=== PATIENT | male | born 1950 | race Hispanic/Latino ===

== ENCOUNTER 2017-09-03 16:00 | Inpatient (IN) | payer MEDICARE ==
[~2017-09-03] VITALS: Ht 172.7 cm; Wt 86.5 kg
[~2017-09-03 16:00] MED LIST: ATOR40TA71 PO; DULO30CA51 PO; ESCI10TA54 PO; GABA-531 PO; MELO-108 PO; TRAM50TA4 PO; TRAZ-144 PO
[2017-09-03 16:56] VITALS: BP 146/87
[2017-09-03 17:04] LABS: APPEARANCE,URINE Clear (CLEAR); BILIRUBIN,URINE Negative (NEGATIVE); COLOR,URINE Yellow (YELLOW); GLUCOSE, URINE (UA) Negative (NEGATIVE); KETONES,URINE Negative (NEGATIVE); LEUKOCYTE ESTERASE ,URINE Negative (NEGATIVE); NITRATE,URINE Negative (NEGATIVE); OCCULT BLOOD,URINE Negative (NEGATIVE); PH,URINE >=9.0 (5.0-8.0); PROTEIN,URINE Negative (NEGATIVE)
[2017-09-04] VITALS (21 sets, daily range): BP systolic 90–156; BP diastolic 53–93
[2017-09-04] MEDS ORDERED: LACTATED RINGERS 1000ML 1,000 ML IV ONE (07:41)
[2017-09-04] MEDS ORDERED: TRANEXAMIC ACID 1000MG/10ML IV ONE (07:49)
[2017-09-04] MEDS ORDERED: CEFAZOLIN SODIUM 1 GM VIAL ONE (07:49)
[2017-09-04] MEDS ORDERED: WATER FOR INJECTION,STERILE 20 ML VIAL IJ ONE (08:00)
[2017-09-04] MEDS ORDERED: CELECOXIB 200 MG CAP ONE (08:05)
[2017-09-04] MEDS ORDERED: OXYCODONE HCL 10 MG TAB.SR.12H PO ONE (08:06)
[2017-09-04] MEDS ORDERED: ACETAMINOPHEN EXTRA STRENGTH 500 MG TABLET ONE (08:06)
[2017-09-04] MEDS: CEFAZOLIN SODIUM 1 GM VIAL IVP ONE ×2 (08:06→09:22)
[2017-09-04] MEDS ORDERED: KETOROLAC TROMETHAMINE 15MG/ML ONE (08:07)
[2017-09-04] MEDS ORDERED: METOCLOPRAMIDE 10 MG/2 ML VIAL ONE (08:08)
[2017-09-04] MEDS ORDERED: [UNRECOGNIZED DRUG - OTHER] PO (08:13)
[2017-09-04] MEDS ORDERED: TYL3 PO (08:13)
[2017-09-04] MEDS ORDERED: CEPH500C2 PO (08:13)
[2017-09-04] MEDS ORDERED: BACI3.5O22 EN (08:13)
[2017-09-04] MEDS ORDERED: ESOM20CA31 PO (08:13)
[2017-09-04] MEDS ORDERED: NEOSTIGMINE 5MG/5ML SYR IV ONE (09:01)
[2017-09-04] MEDS ORDERED: ONDANSETRON HCL 4 MG/2 ML VIAL ONE ×2 (09:01→12:07)
[2017-09-04] MEDS ORDERED: GLYCOPYRROLATE 0.2 MG/ML 5 ML VIAL ONE (09:01)
[2017-09-04] MEDS ORDERED: LIDOCAINE PF 2% 5ML ABBOJECT ONE (09:01)
[2017-09-04] MEDS ORDERED: ROPIVACAINE 0.5% 5MG/ML 30ML IJ ONE (09:01)
[2017-09-04] MEDS ORDERED: LIDOCAINE HCL 2% JELLY 5 ML ONE (09:01)
[2017-09-04] MEDS ORDERED: DEXAMETHASONE SOD PHOSPHATE 10MG/ML 1ML VIAL ONE (09:01)
[2017-09-04] MEDS ORDERED: ROCURONIUM BROMIDE 10MG/1ML 5ML VL ONE (09:01)
[2017-09-04] MEDS ORDERED: LIDOCAINE HCL 4% LTA SOL 4 ML VIAL ONE (09:01)
[2017-09-04] MEDS ORDERED: LIDOCAINE HCL MPF 1% 5ML VIAL ONE (09:01)
[2017-09-04] MEDS ORDERED: PHENYLEPHRINE HCL 10 MG/ML 1ML VIAL IV ONE (09:01)
[2017-09-04] MEDS ORDERED: MIDAZOLAM HCL 1 MG/ML 2ML VIAL ONE (09:02)
[2017-09-04] MEDS ORDERED: PROPOFOL 10 MG/ML 20ML VIAL IV ONE (09:02)
[2017-09-04] MEDS ORDERED: FENTANYL CITRATE PF 50 MCG/1 ML 2ML VIAL ONE ×2 (09:03→10:55)
[2017-09-04] MEDS ORDERED: BUPIVACAINE/EPI/PF 0.25% 10ML VIAL IJ ONE (09:47)
[2017-09-04] MEDS ORDERED: CEFAZOLIN SODIUM 1 GM VIAL IRRIG ONE (10:08)
[2017-09-04] MEDS ORDERED: FENTANYL CITRATE PF 50 MCG/1 ML 5ML AMP IV ONE (10:14)
[2017-09-04] MEDS ORDERED: LABETALOL HCL 5 MG/ML 20ML VIAL IV ONE (10:25)
[2017-09-04] MEDS ORDERED: DiphenhydrAMINE HCL 50 MG/ML VIAL IVP PRN (11:45)
[2017-09-04] MEDS ORDERED: FERROUS FUMARATE 324 MG TABLET PO PRN (11:45)
[2017-09-04] MEDS ORDERED: TRAMADOL HCL 50 MG TABLET PO PRN (11:45)
[2017-09-04] MEDS ORDERED: CALCIUM CARBONATE 500 MG TABLET PO PRN (11:45)
[2017-09-04] MEDS ORDERED: POTASSIUM CHLORIDE 10% ELIXIR 20 MEQ/15 ML UDCUP PO PRN (11:45)
[2017-09-04] MEDS ORDERED: KETOROLAC TROMETHAMINE 15MG/ML IV PRN (11:45)
[2017-09-04] MEDS ORDERED: POTASSIUM CHLORIDE 20 MEQ ERTAB PO PRN (11:45)
[2017-09-04] MEDS ORDERED: PROMETHAZINE HCL 25 MG/ML 1ML AMPULE IM PRN (11:45)
[2017-09-04] MEDS ORDERED: LIDOCAINE HCL-MPF 1% 2ML VIAL IVP PRN (11:45)
[2017-09-04] MEDS ORDERED: DIPHENHYDRAMINE HCL 25 MG CAPSULE PO PRN (11:45)
[2017-09-04] MEDS ORDERED: POTASSIUM CHLORIDE 20MEQ/100ML 100 ML IV PRN (11:45)
[2017-09-04] MEDS: ACETAMINOPHEN 325 MG TAB PO SCH ×3 (13:25→22:19)
[2017-09-04] MEDS: SODIUM CHLORIDE 0.9% 1000ML 1,000 ML IV SCH ×2 (13:25→21:54)
[2017-09-04] MEDS: OXYCODONE HCL 5 MG TAB PO PRN ×2 (13:30→22:19)
[2017-09-04] MEDS ORDERED: CEFAZOLIN 2GM / 50 ML 50 ML IV SCH (16:45)
[2017-09-04] MEDS: PSYLLIUM SEED 1 EACH PACKET PO SCH (16:54)
[2017-09-04] MEDS: CEFAZOLIN SODIUM 1 GM VIAL IVP SCH (16:54)
[2017-09-04] MEDS: TRAZODONE HCL 50 MG TAB PO SCH (19:38)
[2017-09-04] MEDS: ASPIRIN 325 MG TABLET PO SCH (19:38)
[2017-09-04] MEDS: BACITRACIN 3.5 GM TUBE OD SCH (19:39)
[2017-09-04] MEDS: CELECOXIB 200 MG CAP PO SCH (19:39)
[2017-09-04] MEDS: CEPHALEXIN 500 MG CAPSULE PO SCH (19:40)
[2017-09-05] VITALS (7 sets, daily range): BP systolic 115–135; BP diastolic 65–82
[2017-09-05] MEDS: CEFAZOLIN SODIUM 1 GM VIAL IVP SCH (00:16)
[2017-09-05] MEDS: ACETAMINOPHEN 325 MG TAB PO SCH ×4 (04:09→23:32)
[2017-09-05 05:26] LABS: HEMATOCRIT 35.4 % (42-54); MEAN CORPUSCULAR HGB CONC 35.3 g/dL (32.0-36.0); MEAN CORPUSCULAR VOLUME 93.5 fL (79-99); PLATELET COUNT (AUTO) 156 K/uL (130-400); RED BLOOD CELL COUNT(AUTO) 3.79 MIL/uL (4.50-6.20); RED CELL DISTRIBUTION WIDTH 13.1 % (11.0-15.5); WHITE BLOOD COUNT (AUTO) 12.6 K/uL (4.8-10.8)
[2017-09-05 05:35] LABS: POTASSIUM 3.9 mmol/L (3.5-5.1)
[2017-09-05] MEDS: SODIUM CHLORIDE 0.9% 1000ML 1,000 ML IV SCH (07:31)
[2017-09-05] MEDS: OXYCODONE HCL 5 MG TAB PO PRN ×3 (07:39→21:41)
[2017-09-05] MEDS: POLYETHYLENE GLYCOL 3350 17 GM POWD.PACK PO SCH (09:12)
[2017-09-05] MEDS: CELECOXIB 200 MG CAP PO SCH ×2 (09:12→19:36)
[2017-09-05] MEDS: TAMSULOSIN HCL 0.4 MG CAP.ER.24H PO SCH (09:12)
[2017-09-05] MEDS: ASPIRIN 325 MG TABLET PO SCH ×2 (09:12→19:36)
[2017-09-05] MEDS: CEPHALEXIN 500 MG CAPSULE PO SCH ×2 (09:12→19:36)
[2017-09-05] MEDS: CITALOPRAM 20 MG TABLET PO SCH (09:13)
[2017-09-05] MEDS: GABAPENTIN 300 MG CAPSULE PO SCH (09:13)
[2017-09-05] MEDS: ATORVASTATIN CALCIUM 40 MG TABLET PO SCH (09:13)
[2017-09-05] MEDS: PANTOPRAZOLE SODIUM 40 MG TABLET.DR PO SCH (09:13)
[2017-09-05] MEDS: TRAMADOL HCL 50 MG TABLET PO SCH (09:14)
[2017-09-05] MEDS: BACITRACIN 3.5 GM TUBE OD SCH ×2 (12:20→19:35)
[2017-09-05] MEDS: PSYLLIUM SEED 1 EACH PACKET PO SCH (12:20)
[2017-09-05] MEDS: TRAZODONE HCL 50 MG TAB PO SCH (19:36)
[2017-09-06] MEDS: ACETAMINOPHEN 325 MG TAB PO SCH ×4 (04:28→18:48)
[2017-09-06 05:02] LABS: HEMATOCRIT 31.4 % (42-54); MEAN CORPUSCULAR HEMOGLOBIN 33.4 pg (27.0-33.0); MEAN CORPUSCULAR HGB CONC 35.6 g/dL (32.0-36.0); MEAN CORPUSCULAR VOLUME 93.9 fL (79-99); PLATELET COUNT (AUTO) 151 K/uL (130-400); RED BLOOD CELL COUNT(AUTO) 3.35 MIL/uL (4.50-6.20); RED CELL DISTRIBUTION WIDTH 13.1 % (11.0-15.5)
[2017-09-06 05:08] VITALS: BP 130/85
[2017-09-06 08:00] VITALS: BP 137/68
[2017-09-06] MEDS: GABAPENTIN 300 MG CAPSULE PO SCH (08:31)
[2017-09-06] MEDS: CEPHALEXIN 500 MG CAPSULE PO SCH (08:31)
[2017-09-06] MEDS: BACITRACIN 3.5 GM TUBE OD SCH (08:31)
[2017-09-06] MEDS: PANTOPRAZOLE SODIUM 40 MG TABLET.DR PO SCH (08:31)
[2017-09-06] MEDS: CELECOXIB 200 MG CAP PO SCH (08:31)
[2017-09-06] MEDS: ATORVASTATIN CALCIUM 40 MG TABLET PO SCH (08:31)
[2017-09-06] MEDS: CITALOPRAM 20 MG TABLET PO SCH (08:31)
[2017-09-06] MEDS: ASPIRIN 325 MG TABLET PO SCH (08:31)
[2017-09-06] MEDS: TRAMADOL HCL 50 MG TABLET PO SCH (08:32)
[2017-09-06] MEDS: OXYCODONE HCL 5 MG TAB PO PRN ×2 (08:32→18:45)
[2017-09-06] MEDS: POLYETHYLENE GLYCOL 3350 17 GM POWD.PACK PO SCH (08:33)
[2017-09-06] MEDS: TAMSULOSIN HCL 0.4 MG CAP.ER.24H PO SCH (08:33)
[2017-09-06] MEDS ORDERED: BISACODYL 5 MG TABLET.DR PO SCH (09:15)
[2017-09-06] MEDS ORDERED: LACTULOSE 20 GM/30 ML UDCUP PO SCH (09:15)
[2017-09-06 11:00] VITALS: BP 131/78
[2017-09-06] MEDS ORDERED: BISACODYL 5 MG TABLET.DR PO PRN (11:45)
[2017-09-06] MEDS: PSYLLIUM SEED 1 EACH PACKET PO SCH (11:48)
[2017-09-06 16:00] VITALS: BP 129/71
[2017-09-06] MEDS ORDERED: ASPI-1012 PO (19:41)
[2017-09-06] MEDS ORDERED: HYDR-309 PO (19:41)
[2017-09-07] MEDS ORDERED: BISACODYL 10 MG SUPP.RECT RC PRN (11:45)
[2017-12-10] MEDS ORDERED: TRAZ-147 PO (16:29)
== END 2017-09-06 20:25 | disposition home health service (06) | DRG 470 ==
LOC: EDSTATUS 16:00 → DAHIP 09-04 07:32 → 4BH 09-04 12:19
PROVIDERS: ADMIT Orthopaedic Surgery; ATTEND Orthopaedic Surgery
PROC: 0SRD0J9 Replacement of Left Knee Joint with Synthetic Substitute, Cemented, Open Approach (ICD-10-PCS; principal; 2017-09-04 09:09)
DX: M17.12 Unilateral primary osteoarthritis, left knee (principal); J43.9 Emphysema, unspecified; E78.5 Hyperlipidemia, unspecified; I10 Essential (primary) hypertension; F32.9 Major depressive disorder, single episode, unspecified; F41.9 Anxiety disorder, unspecified; K21.9 Gastro-esophageal reflux disease without esophagitis; G89.29 Other chronic pain
CPT/HCPCS: 36415; 80048; 81003; 85027; 88305; 88311; A4218; C1713; J0690; J1100; J1885; J2001; J2250; J2370; J2405; J2704; J2710; J2765; J2795; J3010; J3490; J7030; J7120

== ENCOUNTER 2017-12-10 15:30 | Inpatient (IN) | payer MEDICARE ==
[~2017-12-10] VITALS: Ht 174 cm; Wt 87.0 kg
[2017-12-10 15:43] VITALS: BP 147/75
[2017-12-10 15:49] LABS: APPEARANCE,URINE Clear (CLEAR); BILIRUBIN,URINE Negative (NEGATIVE); COLOR,URINE Yellow (YELLOW); GLUCOSE, URINE (UA) Negative (NEGATIVE); KETONES,URINE Trace mg/dL (NEGATIVE); LEUKOCYTE ESTERASE ,URINE Negative (NEGATIVE); NITRATE,URINE Negative (NEGATIVE); OCCULT BLOOD,URINE Negative (NEGATIVE); PH,URINE 5.5 (5.0-8.0); PROTEIN,URINE Negative (NEGATIVE)
[2017-12-10 15:56] LABS: CREATININE 1.1 mg/dL (0.5-1.5); POTASSIUM 4.1 mmol/L (3.5-5.1)
[2017-12-10 15:58] LABS: INR 1.02 (0.85-1.15); PARTIAL THROMBOPLASTIN TIME 25.4 SEC (26.3-35.5); PROTHROMBIN TIME 10.7 SEC (9.6-11.6)
[2017-12-10 16:00] LABS: BASOPHILS % (AUTO) 0.6 % (0.0-5.0); EOSINOPHILS % (AUTO) 0.4 % (0.0-8.0); HEMATOCRIT 45.1 % (42-54); LYMPHOCYTES % (AUTO) 17.9 % (21.0-51.0); MEAN CORPUSCULAR HEMOGLOBIN 31.7 pg (27.0-33.0); MEAN CORPUSCULAR HGB CONC 34.6 g/dL (32.0-36.0); MEAN CORPUSCULAR VOLUME 91.8 fL (79-99); MONOCYTES % (AUTO) 8.3 % (3.0-13.0); NEUTROPHILS % (AUTO) 72.8 % (40.0-77.0); PLATELET COUNT (AUTO) 179 K/uL (130-400); RED BLOOD CELL COUNT(AUTO) 4.91 MIL/uL (4.50-6.20); WHITE BLOOD COUNT (AUTO) 5.6 K/uL (4.8-10.8)
[2017-12-10] MEDS ORDERED: ACET1TAB25 PO (16:27)
[2017-12-10] MEDS ORDERED: MELO-108 PO (16:27)
[2017-12-10] MEDS ORDERED: GABA-531 PO (16:27)
[2017-12-10] MEDS ORDERED: ATOR-2 PO (16:27)
[2017-12-10] MEDS ORDERED: DULO30CA51 PO (16:27)
[2017-12-10] MEDS ORDERED: TRAZ-187 PO (16:29)
[2017-12-11] VITALS (27 sets, daily range): BP systolic 123–181; BP diastolic 61–96
[2017-12-11] MEDS ORDERED: LACTATED RINGERS 1000ML 1,000 ML IV ONE (07:16)
[2017-12-11] MEDS ORDERED: CEFAZOLIN SODIUM 1 GM VIAL IVP ONE (08:00)
[2017-12-11] MEDS ORDERED: LIDOCAINE PF 2% 5ML ABBOJECT ONE (08:28)
[2017-12-11] MEDS ORDERED: PROPOFOL 10 MG/ML 20ML VIAL IV ONE (08:28)
[2017-12-11] MEDS ORDERED: DEXAMETHASONE SOD PHOSPHATE 10MG/ML 1ML VIAL ONE (08:28)
[2017-12-11] MEDS ORDERED: FENTANYL CITRATE PF 50 MCG/1 ML 2ML VIAL ONE ×2 (08:28→09:16)
[2017-12-11] MEDS ORDERED: GLYCOPYRROLATE 0.2 MG/ML 5 ML VIAL ONE (08:28)
[2017-12-11] MEDS ORDERED: ONDANSETRON HCL 4 MG/2 ML VIAL ONE (08:28)
[2017-12-11] MEDS ORDERED: MIDAZOLAM HCL 1 MG/ML 2ML VIAL ONE (08:28)
[2017-12-11] MEDS ORDERED: CEFAZOLIN SODIUM 1 GM VIAL ONE (08:29)
[2017-12-11] MEDS ORDERED: TRANEXAMIC ACID 1000MG/10ML IV ONE (08:29)
[2017-12-11] MEDS ORDERED: EPINEPHRINE 1 MG/ML AMPULE ONE (08:39)
[2017-12-11] MEDS ORDERED: BUPIVACAINE/PF 0.25% 30ML VIAL IJ ONE (08:39)
[2017-12-11] MEDS ORDERED: ROCURONIUM BROMIDE 10MG/1ML 5ML VL ONE ×2 (08:41→09:09)
[2017-12-11] MEDS ORDERED: VERAPAMIL HCL 2.5 MG/ML VIAL ONE (09:32)
[2017-12-11] MEDS ORDERED: TEMAZEPAM 15 MG CAPSULE PO PRN (10:15)
[2017-12-11] MEDS ORDERED: LIDOCAINE HCL-MPF 1% 2ML VIAL IVP PRN (10:15)
[2017-12-11] MEDS ORDERED: POTASSIUM CHLORIDE 20MEQ/100ML 100 ML IV PRN (10:15)
[2017-12-11] MEDS ORDERED: TRAMADOL HCL 50 MG TABLET PO PRN (10:15)
[2017-12-11] MEDS ORDERED: DiphenhydrAMINE HCL 50 MG/ML VIAL IVP PRN (10:15)
[2017-12-11] MEDS ORDERED: FERROUS FUMARATE 324 MG TABLET PO PRN (10:15)
[2017-12-11] MEDS ORDERED: ONDANSETRON HCL 4 MG/2 ML VIAL IVP PRN (10:15)
[2017-12-11] MEDS ORDERED: POTASSIUM CHLORIDE 10% ELIXIR 20 MEQ/15 ML UDCUP PO PRN (10:15)
[2017-12-11] MEDS: ACETAMINOPHEN EXTRA STRENGTH 500 MG TABLET PO SCH ×2 (10:15→18:24)
[2017-12-11] MEDS ORDERED: CALCIUM CARBONATE 500 MG TABLET PO PRN (10:15)
[2017-12-11] MEDS ORDERED: OXYCODONE HCL 5 MG TAB PO PRN (10:15)
[2017-12-11] MEDS ORDERED: MEPERIDINE-PF 25 MG/ML SYG ONE ×2 (11:14→11:28)
[2017-12-11] MEDS ORDERED: LABETALOL HCL 5 MG/ML 20ML VIAL IV ONE (11:23)
[2017-12-11] MEDS: SODIUM CHLORIDE 0.9% 1000ML 1,000 ML IV SCH ×2 (12:13→19:25)
[2017-12-11] MEDS: KETOROLAC TROMETHAMINE 15MG/ML IV PRN (12:18)
[2017-12-11] MEDS: OXYCODONE HCL 5 MG TAB PO PRN ×2 (13:28→20:01)
[2017-12-11] MEDS ORDERED: CEFAZOLIN 2GM / 50 ML 50 ML IV SCH (15:15)
[2017-12-11] MEDS: CEFAZOLIN SODIUM 1 GM VIAL IVP SCH ×2 (15:17→22:29)
[2017-12-11] MEDS: CELECOXIB 200 MG CAP PO SCH (20:00)
[2017-12-11] MEDS: FAMOTIDINE 20MG TAB 20 MG TAB PO SCH (20:00)
[2017-12-11] MEDS: GABAPENTIN 300 MG CAPSULE PO SCH (20:00)
[2017-12-11] MEDS: ASPIRIN 325 MG TABLET PO SCH (20:00)
[2017-12-11] MEDS: DULOXETINE HCL 30 MG CAP PO SCH (20:01)
[2017-12-11] MEDS: ATORVASTATIN CALCIUM 40 MG TABLET PO SCH (20:01)
[2017-12-11] MEDS: TRAZODONE HCL 100 MG TABLET PO SCH (20:01)
[2017-12-11] MEDS ORDERED: PREGABALIN 25 MG CAP PO SCH (21:00)
[2017-12-12] MEDS: OXYCODONE HCL 5 MG TAB PO PRN ×4 (00:48→15:39)
[2017-12-12] MEDS: ACETAMINOPHEN EXTRA STRENGTH 500 MG TABLET PO SCH ×3 (02:40→17:49)
[2017-12-12 03:15] VITALS: BP 156/78
[2017-12-12 05:13] LABS: HEMATOCRIT 35.8 % (42-54); MEAN CORPUSCULAR HEMOGLOBIN 31.8 pg (27.0-33.0); MEAN CORPUSCULAR VOLUME 90.9 fL (79-99); NUCLEATED RED BLOOD CELLS 0.1 % (0.0-0.19); PLATELET COUNT (AUTO) 135 K/uL (130-400); RED BLOOD CELL COUNT(AUTO) 3.94 MIL/uL (4.50-6.20); RED CELL DISTRIBUTION WIDTH 14.7 % (11.0-15.5); WHITE BLOOD COUNT (AUTO) 6.9 K/uL (4.8-10.8)
[2017-12-12 05:15] LABS: CREATININE 0.9 mg/dL (0.5-1.5); POTASSIUM 3.5 mmol/L (3.5-5.1)
[2017-12-12] MEDS: POTASSIUM CHLORIDE 20 MEQ ERTAB PO PRN ×2 (05:33→08:13)
[2017-12-12] MEDS: SODIUM CHLORIDE 0.9% 1000ML 1,000 ML IV SCH (05:48)
[2017-12-12] MEDS: ASPIRIN 325 MG TABLET PO SCH ×2 (08:12→20:19)
[2017-12-12] MEDS: CELECOXIB 200 MG CAP PO SCH ×2 (08:12→20:19)
[2017-12-12] MEDS: DULOXETINE HCL 30 MG CAP PO SCH ×2 (08:12→20:20)
[2017-12-12] MEDS: FAMOTIDINE 20MG TAB 20 MG TAB PO SCH ×2 (08:12→20:20)
[2017-12-12] MEDS: GABAPENTIN 300 MG CAPSULE PO SCH ×2 (08:12→20:19)
[2017-12-12] MEDS: KETOROLAC TROMETHAMINE 15MG/ML IV PRN ×2 (08:16→20:20)
[2017-12-12 08:24] VITALS: BP 139/73
[2017-12-12] MEDS ORDERED: TAMSULOSIN HCL 0.4 MG CAP.ER.24H PO SCH (09:00)
[2017-12-12] MEDS ORDERED: POLYETHYLENE GLYCOL 3350 17 GM POWD.PACK PO SCH (09:00)
[2017-12-12 12:09] VITALS: BP 139/69
[2017-12-12 16:38] VITALS: BP 122/59
[2017-12-12 19:05] VITALS: BP 130/68
[2017-12-12] MEDS: ATORVASTATIN CALCIUM 40 MG TABLET PO SCH (20:20)
[2017-12-12] MEDS: TRAZODONE HCL 100 MG TABLET PO SCH (20:20)
[2017-12-12] MEDS ORDERED: ASPI-1012 PO (21:26)
[2017-12-12] MEDS ORDERED: HYDR-309 PO (21:26)
[2017-12-14] MEDS ORDERED: BISACODYL 10 MG SUPP.RECT RC PRN (10:15)
== END 2017-12-12 22:20 | disposition home health service (06) | DRG 470 ==
LOC: EDSTATUS 15:30 → DAHIP 12-11 06:24 → 4AH 12-11 10:54
PROVIDERS: ADMIT Orthopaedic Surgery; ATTEND Orthopaedic Surgery
PROC: 0SRC0J9 Replacement of Right Knee Joint with Synthetic Substitute, Cemented, Open Approach (ICD-10-PCS; principal; 2017-12-11 09:08)
DX: M17.0 Bilateral primary osteoarthritis of knee (principal); E78.5 Hyperlipidemia, unspecified; I10 Essential (primary) hypertension; F41.9 Anxiety disorder, unspecified; F32.9 Major depressive disorder, single episode, unspecified; Z96.652 Presence of left artificial knee joint; K21.9 Gastro-esophageal reflux disease without esophagitis; G47.30 Sleep apnea, unspecified; G89.29 Other chronic pain; Z83.3 Family history of diabetes mellitus; Z82.49 Family history of ischemic heart disease and other diseases of the circulatory system; M81.0 Age-related osteoporosis without current pathological fracture; Z28.21 Immunization not carried out because of patient refusal
CPT/HCPCS: 36415; 80048; 81003; 85025; 85027; 85610; 85730; 88305; 88311; 97039; A4218; J0171; J0690; J1100; J1885; J2001; J2175; J2250; J2405; J2704; J3010; J3490; J7030; J7120

== ENCOUNTER 2018-09-12 09:55 | Observation (INO) | payer MEDICARE ==
[2018-09-11] MEDS: CEFAZOLIN SODIUM 1 GM VIAL IVP SCH (10:30)
--- NOTE | 2018-09-11 16:25 | NUR ---
MEDICATION REPORTED THAT PATIENT TOOK ALEVE AND IBUPROFEN 800 MG THIS MORNING TO DR SHERMAN/DESHAWN ORTIZ TO PROCEED WITH SURGERY.
--- NOTE | 2018-09-11 16:25 | NUR ---
[facility] ELECT[employer] NEWS GATHERING [place] PERSON ADRIAN#[id number] USED FOR VIETNAMESE TRANSLATION
[2018-09-11 16:39] VITALS: BP 147/87
[~2018-09-12] VITALS: Ht 172.7 cm; Wt 88.3 kg
[2018-09-12] VITALS (17 sets, daily range): BP systolic 119–132; BP diastolic 51–75
[~2018-09-12 09:55] MED LIST changes: +DIFL5DRO OS; -DULO30CA51 PO; +DULO60CA63 PO; -ESCI10TA54 PO; +IBUP-2077 PO; -MELO-108 PO; +MULT1TAB70 PO; +NAPR220T57 PO; +OMEP40CA37 PO; -TRAZ-144 PO; +TRAZ-187 PO
[2018-09-12] MEDS ORDERED: LACTATED RINGERS 1000ML 1,000 ML IV ONE (10:46)
--- NOTE | 2018-09-12 10:54 | NUR ---
PUPIL OCCURRENCE: IOL IMPLANT LEFT EYE
[2018-09-12] MEDS ORDERED: MIDAZOLAM HCL 1 MG/ML 2ML VIAL ONE (16:46)
[2018-09-12] MEDS ORDERED: PROPOFOL 10 MG/ML 20ML VIAL IV ONE (16:47)
[2018-09-12] MEDS ORDERED: FENTANYL CITRATE PF 50 MCG/1 ML 2ML VIAL ONE (16:48)
[2018-09-12] MEDS ORDERED: SUCCINYLCHOLINE 200MG/10ML SYR ONE (16:49)
[2018-09-12] MEDS ORDERED: ROCURONIUM 10MG/1ML SYR 10 MG/ML ML ONE (16:50)
[2018-09-12] MEDS: CEFAZOLIN SODIUM 1 GM VIAL IVP SCH ×2 (16:54→20:45)
[2018-09-12] MEDS ORDERED: EPHEDRINE SULFATE 50 MG/ML AMPULE ONE (17:06)
[2018-09-12] MEDS ORDERED: GLYCOPYRROLATE 1 MG/5 ML SYRINGE ONE (18:36)
[2018-09-12] MEDS ORDERED: NEOSTIGMINE 5MG/5ML SYR IV ONE (18:36)
[2018-09-12] MEDS ORDERED: CEFAZOLIN SODIUM 1 GM VIAL ONE (18:57)
[2018-09-12] MEDS ORDERED: FENTANYL CITRATE PF 50 MCG/1 ML 5ML AMP IV ONE (19:34)
[2018-09-12] MEDS ORDERED: TYL3 PO (20:34)
[2018-09-12] MEDS ORDERED: CEPH500B PO (20:34)
[2018-09-12] MEDS ORDERED: PROMETHAZINE HCL 25 MG/ML 1ML AMPULE IM PRN (20:45)
[2018-09-12] MEDS ORDERED: HYDROCODONE/ACETAMINOPHEN 5/325 MG TAB PO PRN (20:45)
[2018-09-12] MEDS ORDERED: MEPERIDINE-PF 25 MG/ML SYG ONE ×2 (20:47→21:02)
[2018-09-12] MEDS ORDERED: MORPHINE SULFATE 4 MG/1ML SYG ONE (21:20)
--- NOTE | 2018-09-12 22:02 | NUR ---
POST OP NOTE RECEIVED PATIENT FROM PACU VIA BED, PATIENT AWAKE, ALERT, OX3, NO SOB,N O C/O PAIN AT THIS TIME, DRESSING LEFT HAND D/I, RIGHT KNEE WITH ESSENCE WRAP D/I, TEACH PATIENT PLAN OF CARE AND EXPECTED OUTCOME
[2018-09-12] MEDS: HYDROCODONE/ACETAMINOPHEN 5/325 MG TAB PO PRN (22:49)
[2018-09-12] MEDS: SODIUM CHLORIDE 0.9% 1000ML 1,000 ML IV SCH (22:50)
[2018-09-13] MEDS: HYDROCODONE/ACETAMINOPHEN 5/325 MG TAB PO PRN (03:14)
[2018-09-13 04:00] VITALS: BP 141/69
[2018-09-13] MEDS: SODIUM CHLORIDE 0.9% 1000ML 1,000 ML IV SCH (04:04)
[2018-09-13] MEDS ORDERED: CEFAZOLIN SODIUM 1 GM VIAL IVP ONE (07:00)
[2018-09-13 08:00] VITALS: BP 139/66
--- NOTE | 2018-09-13 08:00 | NUR ---
NOTE AAOX3. C/O MODERATE PAIN TO LEFT HAND. S/P LEFT SECOND FINGER ORIF AND RIGHT KNEE SCOPE. DRESSING TO BOTH SITES D/I. ESSENCE WRAP TO RIGHT KNEE. GOOD PULSES DISTAL RIGHT LEG AND GOOD CAPILLARY REFILL. LEFT FINGERS ALSO GOOD CAPILLARY REFILL. HAS SENSATION AND MOVEMENT TO LEFT FINGERS AND RIGHT TOES. NO N/V. HAS BEEN VOIDING WITHOUT DIFFICULTY. NO DISTRESS OR SOB. HAS RECEIVED LAST DOSE ANCEF EARLIER THIS AM. HE WILL BE LEAVING LATER THIS AM. WILL MEDICATE FOR PAIN AND REASSESS THEN SEND HIM HOME. HE HAS RX FOR PAIN MEDS WELL.
--- NOTE | 2018-09-13 08:50 | NUR ---
NOTE DISCHARGE INSTRUCTIONS GIVEN AT THIS TIME. VERBALIZED UNDERSTANDING. REFER TO DC SUMMARY FOR DETAILS. PAIN MORE CONTROLLED NOW STILL A 3 BUT HE HAS SCRIPT FOR TYLENOL 3. IS AT HIS SIDE AND WE WENT OVER ALL INSTRUCTIONS FOR INCISION CARE, DRESSING CARE AND FOLLOW UP AND HOME MEDS.
== END 2018-09-13 09:35 | disposition home or self-care (01) ==
LOC: DAH 09:55 → 4CH 20:34
PROVIDERS: ADMIT Orthopaedic Surgery; ATTEND Orthopaedic Surgery
DX: S62.611A Displaced fracture of proximal phalanx of left index finger, initial encounter for closed fracture (principal); M22.2X1 Patellofemoral disorders, right knee; W19.XXXA Unspecified fall, initial encounter; Y93.89 Activity, other specified; Y92.89 Other specified places as the place of occurrence of the external cause; Y99.8 Other external cause status; Z79.899 Other long term (current) drug therapy; I10 Essential (primary) hypertension; K21.9 Gastro-esophageal reflux disease without esophagitis; G47.30 Sleep apnea, unspecified; G89.29 Other chronic pain; E78.5 Hyperlipidemia, unspecified; Z96.659 Presence of unspecified artificial knee joint; Z83.3 Family history of diabetes mellitus
CPT/HCPCS: 26735; 29875; 76000; 96374; A4218; A4606; A4649 ×4; A4930 ×3; A6223; A6445; A6446; C1713 ×5; C1776; G0378 ×13; J0330; J0690 ×3; J2175 ×2; J2250; J2270; J2704; J2710; J3010 ×2; J3490 ×2; J7120 ×2

== ENCOUNTER → 2019-09-04 | Outpatient (CLI) | payer MEDICARE ==
[~2019-09-04] MED LIST changes: -DULO60CA63 PO; +DULO60CA64 PO; -IBUP-2077 PO; +OMEP40CA13 PO; -OMEP40CA37 PO; -TRAM50TA4 PO; +TYL3 PO
== END | disposition home or self-care (01) ==
LOC: RAH 08:54
PROVIDERS: ATTEND Internal Medicine Gastroenterology
DX: K76.0 Fatty (change of) liver, not elsewhere classified (principal); K80.20 Calculus of gallbladder without cholecystitis without obstruction
CPT/HCPCS: 76700

== ENCOUNTER → 2019-12-21 | Outpatient (CLI) | payer MEDICARE ==
[~2019-12-21] MED LIST changes: +IOHEXOL 350 MG/ML 100ML INFUS..BTL IV ONE; +MULT-660 PO; -MULT1TAB70 PO
== END | disposition home or self-care (01) ==
LOC: RAH 08:44
PROVIDERS: ATTEND Internal Medicine Gastroenterology
DX: K80.20 Calculus of gallbladder without cholecystitis without obstruction (principal); K76.0 Fatty (change of) liver, not elsewhere classified; J98.11 Atelectasis
CPT/HCPCS: 74160; Q9967

== ENCOUNTER → 2020-01-13 | Outpatient (CLI) | payer MEDICARE ==
[~2020-01-13] MED LIST changes: -IOHEXOL 350 MG/ML 100ML INFUS..BTL IV ONE
== END | disposition home or self-care (01) ==
LOC: RAH 10:04
PROVIDERS: ATTEND Internal Medicine Gastroenterology
DX: K31.84 Gastroparesis (principal)
CPT/HCPCS: 78264; A9541

== ENCOUNTER → 2022-08-22 | Outpatient (CLI) | payer OTHER ==
[~2022-08-22] MED LIST changes: -OMEP40CA13 PO; +OMEP40CA21 PO
== END | disposition home or self-care (01) ==
LOC: RAH 09:57
PROVIDERS: ATTEND Internal Medicine Gastroenterology
DX: R10.13 Epigastric pain (principal)
CPT/HCPCS: 74240

== ENCOUNTER → 2024-04-09 | Outpatient (CLI) | payer OTHER ==
[~2024-04-09] MED LIST changes: -ATOR40TA71 PO; +BISACODYL PO; +CELE-125 PO; +DICY20TA3 PO; -DIFL5DRO OS; +EMPA25TA PO; -GABA-531 PO; +LOSA50TA64 PO; +METO10TA3 PO; -MULT-660 PO; -NAPR220T57 PO; +ROSU10TA72 PO; +TAMS-1 PO; -TRAZ-187 PO; -TYL3 PO
== END | disposition home or self-care (01) ==
LOC: RAH 10:38
PROVIDERS: ATTEND Surgery
DX: K30 Functional dyspepsia (principal); K21.00 Gastro-esophageal reflux disease with esophagitis, without bleeding; K31.84 Gastroparesis; K44.9 Diaphragmatic hernia without obstruction or gangrene
CPT/HCPCS: 78264; A9541

== ENCOUNTER 2024-06-05 05:47 | Inpatient (IN) | payer OTHER ==
[~2024-06-05] VITALS: Ht 172.7 cm; Wt 67.8 kg
[~2024-06-05 05:47] MED LIST changes: -CELE-125 PO; -DICY20TA3 PO; +GABA300C PO; -METO10TA3 PO; +MULT-1259 PO; -OMEP40CA21 PO
[2024-06-05] MEDS: LACTATED RINGERS 1000ML 1,000 ML IV ONE (06:28)
[2024-06-05] MEDS: morPHINE 2 MG SYG IVP ONE (06:28)
[2024-06-05] MEDS: ondanSETRON 4MG INJ IVP ONE (06:28)
[2024-06-05 06:29] LABS: BASOPHILS # (AUTO) 0.04 K/uL (0.00-0.20); BASOPHILS % (AUTO) 0.3 % (0.0-5.0); EOSINOPHILS # (AUTO) 0.02 K/uL (0.00-0.70); EOSINOPHILS % (AUTO) 0.2 % (0.0-8.0); HEMATOCRIT 54.4 % (42-54); IMMATURE GRANULOCYTE ABSOLUTE 0.06 K/uL (0-1); LYMPHOCYTES # (AUTO) 0.5 K/uL (1.0-4.8); LYMPHOCYTES % (AUTO) 4.2 % (21.0-51.0); MEAN CORPUSCULAR HEMOGLOBIN 33.1 pg (27.0-33.0); MEAN CORPUSCULAR HGB CONC 35.1 g/dL (32.0-36.0); MEAN CORPUSCULAR VOLUME 94.3 fL (79-99); MONOCYTES # (AUTO) 0.7 K/uL (0.1-1.0); MONOCYTES % (AUTO) 5.5 % (3.0-13.0); NEUTROPHILS # (AUTO) 11.3 K/uL (1.8-7.7); NEUTROPHILS % (AUTO) 89.3 % (40.0-77.0); PLATELET COUNT (AUTO) 243 K/uL (130-400); RED BLOOD CELL COUNT(AUTO) 5.77 MIL/uL (4.50-6.20); RED CELL DISTRIBUTION WIDTH 12.4 % (11.0-15.5); WHITE BLOOD COUNT (AUTO) 12.6 K/uL (4.8-10.8)
--- NOTE | 2024-06-05 06:42 | ERN ---
General Chief Complaint: Abdominal Pain Stated Complaint: C/O ABD PAIN WITH N X V, WEAKNESS Time Seen by MD: 06:09 History of Present Illness Initial Comments Mr. Jauregui that is a very pleasant 74-year-old male significant past medical history of BPH, hyperlipidemia, essential hypertension who presents today with acute abdominal pain. Patient reports that he had a robotic cholecystectomy and hiatal hernia repair last week on the 05/29. In addition to that he had a robotic gastric jejunostomy done as well. Patient reports he was doing well and even saw his surgeon yesterday but as soon as leaving his off his patient is started feeling nauseated and having abdominal pain. Patient reports having worsening epigastric pain. Patient has had poor p.o. intake . he is now compl aining of increased weakness Allergies: Coded Allergies: No Known Drug Allergies (Unverified Allergy, Unknown, 11/19/16) Home Meds Reported Medications Gabapentin (Neurontin) 300 Mg Capsule, 300 MG PO AM, CAP 05/25/24 Multivits,Ca,Min/Iron/FA/Lycop (Centrum Men's Tablet) 8 Mg Iron-200 Mcg-600 Mcg Tablet, 1 TAB PO DAILY for 30 Days, #30 TAB 0 Refills 05/25/24 Empagliflozin (Jardiance) 25 Mg Tablet, 25 MG PO AM, TAB 03/25/24 Losartan Potassium (Losartan Potassium) 50 Mg Tablet, 50 MG PO AM, TAB 03/25/24 Rosuvastatin Calcium (Rosuvastatin Calcium) 10 Mg Tablet, 10 MG PO QODAY, TAB 03/25/24 [Bisacodyl] No Conflict Check, 10 MG PO HS 03/25/24 Tamsulosin HCl (Flomax) 0.4 Mg Cap.er.24h, 0.4 MG PO HS, CAPSULE. 03/25/24 Duloxetine HCl (Duloxetine HCl) 60 Mg Capsule.dr, 60 MG PO HS, CAP 09/11/18 Discontinued Reported Medications Esomeprazole Magnesium (Esomeprazole Magnesium) 40 Mg Capsule.dr, 1 CAP PO DAILY for 30 Days, #30 CAP 0 Refills 05/25/24 Dicyclomine HCl (Dicyclomine HCl) 20 Mg Tablet, 20 MG PO BID PRN for PAIN, TAB 03/25/24 Metoclopramide HCl (Metoclopramide HCl) 10 Mg Tablet, 10 MG PO BID, TAB 03/25/24 Celecoxib (Celecoxib) 200 Mg Capsule, 200 MG PO AM, CAP 03/25/24 Past Medical History Past Medical History: Diabetes-Type II, High Cholesterol, Hypertension Past Surgical History: Cholecystectomy, Other Surgical History Other: HERNIA REPAIR ROS Dictation Constitutional: Positive for generalized weakness Eyes: Negative for injury, pain,redness, and discharge ENT: Negative for injury,pain or swelling Cardiovascular: Negative for chest pain, palpitations, and edema Respiratory: Negative for shortness of breath, cough, and wheezing, Abdomen/GI: Positive abdominal pain, nausea vomiting Back: Negative for injury and pain : Negative for injury, bleeding and discharge MS/Extremity: Negative for injury and deformity Skin: Negative for rash, and discoloration Physical Exam Physical Exam Dictation General: awake, alert, NAD Head/Face: Normocephalic, atraumatic Eyes: PERRL, EOMI, ENT: oral cavity clear, Neck: Trachea midline, supple, Cardiovascular: RRR, normal S1/S2, No MRGs, no JVD Respiratory: CTAB, no respiratory distress, No rales or wheezes Abdomen: Pain with palpation in the epigastric region, various surgical incision sites that appear to be clean dry and intact Skin: Warm, dry, normal turgor, no rash MS/Extremity: Pulses equal, no cyanosis, neurovascular intact, FROM Neuro: COAx4, GCS 15, strength 5/5, CN 2-12 intact, normal cerebellar exam, normal gait, Psych: Normal behavior, mood, and affect normal Results Laboratory and Microbiology Lab and Micro Result Laboratory Tests Test 06/05/24 06:23 06/05/24 07:40 White Blood Count 12.6 K/uL (4.8-10.8) H Red Blood Count 5.77 MIL/uL (4.50-6.20) Hemoglobin 19.1 g/dL (14.0-18.0) H Hematocrit 54.4 % (42-54) H Mean Corpuscular Volume 94.3 fL (79-99) Mean Corpuscular Hemoglobin 33.1 pg (27.0-33.0) H Mean Corpuscular Hemoglobin Concent 35.1 g/dL (32.0-36.0) Red Cell Distribution Width 12.4 % (11.0-15.5) Platelet Count 243 K/uL (130-400) Mean Platelet Volume 10.2 fL (7.5-10.5) Immature Granulocyte % (Auto) 0.5 % (0-1) Neutrophils (%) (Auto) 89.3 % (40.0-77.0) H Lymphocytes (%) (Auto) 4.2 % (21.0-51.0) L Monocytes (%) (Auto) 5.5 % (3.0-13.0) Eosinophils (%) (Auto) 0.2 % (0.0-8.0) Basophils (%) (Auto) 0.3 % (0.0-5.0) Neutrophils # (Auto) 11.3 K/uL (1.8-7.7) H Lymphocytes # (Auto) 0.5 K/uL (1.0-4.8) L Monocytes # (Auto) 0.7 K/uL (0.1-1.0) Eosinophils # (Auto) 0.02 K/uL (0.00-0.70) Basophils # (Auto) 0.04 K/uL (0.00-0.20) Absolute Immature Granulocyte (auto 0.06 K/uL (0-1) Segmented Neutrophils % 92 % (40-70) H Band Neutrophils % 2 % (0-2) Lymphocytes % (Manual) 1 % (22-44) L Monocytes % (Manual) 2 % (2-9) Nucleated Red Blood Cells 0.0 % (0.0-0.19) Differential Comment MANUAL DIFFERENTIAL Reactive Lymphocytes 3 % (0-0) H White Cell Morphology Comment Platelet Morphology Comment ADEQUATE Red Blood Cell Morphology NORMAL Sodium Level 142 mmol/L (136-145) Potassium Level 4.4 mmol/L (3.5-5.1) Chloride Level 93 mmol/L (101-111) L Carbon Dioxide Level 26 mmol/L (21-32) Blood Urea Nitrogen 28 mg/dL (7-18) H Creatinine 1.4 mg/dL (0.5-1.3) H Glomerular Filtration Rate Calc 53 mL/min (>90) Random Glucose 180 mg/dL (70-105) H Total Calcium 10.9 mg/dL (8.5-10.1) H Total Bilirubin 0.8 mg/dL (0.2-1.0) Aspartate Amino Transf (AST/SGOT) 19 U/L (10-37) Alanine Aminotransferase (ALT/SGPT) 30 U/L (12-78) Alkaline Phosphatase 129 U/L (50-136) Total Protein 8.6 g/dL (6.0-8.3) H Albumin 5.0 g/dL (3.5-5.0) Amylase Level 79 U/L (25-115) Lipase 41 U/L (16-77) Urine Color YELLOW (YELLOW) Urine Appearance CLEAR (CLEAR) Urine pH 5.0 (5.0-8.0) Urine Specific [place] 1.030 (1.001-1.031) Urine Protein 20 mg/dL (NEGATIVE) H Urine Glucose (UA) >=1000 mg/dL (NEGATIVE) H Urine Ketones 60 mg/dL (NEGATIVE) H Urine Occult Blood NEGATIVE (NEGATIVE) Urine Nitrate NEGATIVE (NEGATIVE) Urine Bilirubin NEGATIVE mg/dL (NEGATIVE) Urine Urobilinogen 0.2 mg/dL (0.2-1.0) Urine Leukocyte Esterase NEGATIVE Amadou/uL Urine RBC 2-5 /HPF (0-1) H Urine WBC 0-1 /HPF (0-1) Urine Squamous Epithelial Cells RARE /HPF (0-2) Urine Bacteria RARE /HPF (None Seen) Urine Hyaline Casts 2-5 /LPF (0-1 /LPF) H Labs Reviewed?: Yes EKG/XRAY/US/CT/[place] [address] IMAGING REPORT Signed PATIENT: KINGSTON FINLEY MR#: [id number] : 1950 SEX: M AGE: 74 LOCATION: [facility] ORDER 1 STATUS: REG ER REPORT#: [id number] SERVICE 1 REASON: abd pain ORDERING PHYSICIAN: RYAN DELEON MD PROCEDURE: ABD PEL W - CT ABDOMEN/PELVIS W/CONTRAST CT ABDOMEN/PELVIS W/CONTRAST HISTORY: Abdominal pain COMPARISON: 12/21/2019 TECHNIQUE: Multiple sequential axial images of the abdomen and pelvis were obtained from the dome of the diaphragm through symphysis pubis. Patient was given 100 cc of Omnipaque through intravenous route. Oral contrast was not given. FINDINGS: No pleural effusion is seen bilaterally. There is no evidence of parenchymal disease or pulmonary nodule of the visualized lower lungs. Degenerative changes of the thoracolumbar spine are present. The heart is not enlarged. Liver measures 13 cm. Gastric distention with small bowel dilatation is seen with transitional point at the level of jejunum consistent with bowel obstruction. The liver, spleen, adrenal glands and pancreas are unremarkable. There is no evidence of hydronephrosis bilaterally. No evidence of renal stone is seen. Fecal material is seen in the colon. There are normal size retroperitoneal and mesenteric lymph nodes. No ascites is seen. Atherosclerotic changes are present. No CT evidence of acute appendicitis is seen. There is diverticulosis. Pelvic sidewalls are symmetric bilaterally. Bladder is well distended without wall thickening. IMPRESSION: 1. Gastric distention with small bowel dilatation is seen with transitional point at the level of jejunum consistent with bowel obstruction. CT was performed with one or more following dose reduction techniques: automated exposure control, adjustment of the mA and kv according to patient's size, or use of a iterative reconstruction technique. DICTATED BY: MIRANDA JACQUES MD DATE: 06/05/24941 ELECTRONICALLY SIGNED BY: MIRANDA JACQUES MD DATE: 06/05/24945 [facility] MDM: Differential diagnosis: Small-bowel obstruction, status post cholecystectomy Rationale: Tests considered and ordered secondary to shared decision making include: labs, ECG and radiology Previous outside records reviewed: Old ER visits. Risk of complication and/or morbidity or mortality of patient management: None Medications-Per medication reconciliation Need for hospitalization: Patient does meet criteria for hospitalization. Need for emergency major/minor surgery: No There are no social concerns with this patient. Prescription drug management Prescriptions will include symptomatic care Patient's prior external medical records from other ER visits were reviewed by me as indicated. Prior testing and results from previous visits were reviewed. Prior tests were taken into account with medical decision making and resource utilization, independent historian/historians were used to obtain complete medical history. I independently interpreted the test that were performed, results were reviewed by me and considered findings on radiology if ordered. Medical management and examination interpretation discussions were had by me with other qualified healthcare professionals as indicated for the patient's care. Patient is a 74-year-old male coming in to be evaluated for abdominal pain. Laboratory workup elevated white blood cell count, CT disclose a small bowel obstruction. Patient will be admitted under the care of Dr. Salmeron for ongoing management. ED Course Orders Procedure Category Date Status Time Cbc With Differential LAB 06/05/24 Complete 06:09 Comprehensive LAB 06/05/24 Complete Metabolic Panel 06:09 Amylase LAB 06/05/24 Complete 06:09 Urinalysis Profile LAB 06/05/24 Complete 06:09 Lactated Ringers PHA 06/05/24 Complete 1000ml (Lactated 06:30 Morphine 2mg Syg PHA 06/05/24 Complete (Morphine 2mg Syg) 06:30 Lipase LAB 06/05/24 Complete 06:09 Ondansetron 4mg Inj PHA 06/05/24 Complete (Zofran 4mg Inj) 06:30 Cefepime Hcl 1 Gm PHA 06/05/24 In Process Vial (Maxipime 1 Gm Vi 06:30 Vancomycin 1g/250ml PHA 06/05/24 Complete Kit (Vancomycin 1g/2 06:30 Manual Differential LAB 06/05/24 Complete 06:23 Pantoprazole 40mg Inj PHA 06/05/24 Complete (Protonix 40mg Inj 09:00 Ct Abdomen/Pelvis CT 06/05/24 Resulted W/Contrast 08:32 Iohexol (Omnipaque) PHA 06/05/24 Complete 09:05 Current Medications Medications (Trade) Dose Ordered Sig/Bridgette Route PRN Reason Start Time Stop Time Status Last Admin Dose Admin Cefepime HCl (MAXipime 1 GM vial) 1 gm Q8H IVPB 06/05/24 06:30 06/15/24 06:29 06/05/24 08:00 Iohexol (Omnipaque) 35,000 mg STK-MED ONCE IV 06/05/24 09:05 06/05/24 09:06 DC Lactated Ringer's 1,000 ml @ 0 mls/hr ONCE ONCE IV 06/05/24 06:30 06/05/24 06:31 DC 06/05/24 06:28 Morphine Sulfate (morPHINE 2MG SYG) 2 mg ONCE ONCE IVP 06/05/24 06:30 06/05/24 06:31 DC 06/05/24 06:28 Ondansetron HCl (zoFRAN 4MG INJ) 4 mg ONCE ONCE IVP 06/05/24 06:30 06/05/24 06:31 DC 06/05/24 06:28 Pantoprazole Sodium (PROTonix 40MG INJ) 40 mg ONCE ONCE IVP 06/05/24 09:00 06/05/24 09:01 DC 06/05/24 09:41 Vancomycin HCl (Vancomycin 1g/ 250ml Kit) 1 gm ONCE ONCE IV 06/05/24 06:30 06/05/24 06:31 DC 06/05/24 09:42 Vital Signs Date Time Temp Pulse Resp B/P (MAP) Pulse Ox O2 Delivery O2 Flow Rate FiO2 06/05/24 06:40 97.7 87 27 130/98 96 Room Air* 0 21 06/05/24 05:49 99.3 105 20 133/79 96 Room Air Critical Care Note Comments Critical Care Procedure Note Authorized and Performed by: me Total critical care time: Approximately 36 minutes Due to a high probability of clinically significant, life threatening deterioration, the patient required my highest level of preparedness to i ntervene emergently and I personally spent this critical care time directly and personally managing the patient. This critical care time included obtaining a history; examining the patient; pulse oximetry; ordering and review of studies; arranging urgent treatment with development of a management plan; evaluation of patient's response to treatment; frequent reassessment; and, discussions with other providers. This critical care time was performed to assess and manage the high probability of imminent, life-threatening deterioration that could result in multi-organ failure. It was exclusive of separately billable procedures and treating other patients and teaching time. Please see MDM section and the rest of the note for further information on patient assessment and treatment. DX & DISP Disposition: Inpatient Decision to Admit Time: 09:59 Departure Impression: Primary Impression: SBO (small bowel obstruction) Condition: Stable Referrals: NADJA LEONARD MD (PCP) KINGSTON ABDULLAHI MD Jun 05, 2024 06:42 RYAN DELEON MD Jun 05, 2024 10:01
[2024-06-05 06:47] LABS: BILIRUBIN,TOTAL 0.8 mg/dL (0.2-1.0); CREATININE 1.4 mg/dL (0.5-1.3); POTASSIUM 4.4 mmol/L (3.5-5.1); TOTAL PROTEIN, SERUM 8.6 g/dL (6.0-8.3)
[2024-06-05 07:24] LABS: BAND NEUTROPHILS % (MANUAL) 2 % (0-2); LYMPHOCYTES % (MANUAL) 1 % (22-44); MAN.DIFF COMMENT-IMPRESSION MANUAL DIFFERENTIAL; MONOCYTES % (MANUAL) 2 % (2-9); PLATELET MORPHOLOGY COMMENT ADEQUATE; REACTIVE LYMPHOCYTES 3 % (0-0); SEGMENTED NEUTROPHILS % 92 % (40-70); TOTAL CELLS COUNTED 100
[2024-06-05] MEDS: ceFEPime HCL 1 GM VIAL IVPB SCH (08:00)
[2024-06-05 08:28] LABS: APPEARANCE,URINE CLEAR (CLEAR); BILIRUBIN,URINE NEGATIVE (NEGATIVE); COLOR,URINE YELLOW (YELLOW); GLUCOSE, URINE (UA) >=1000 mg/dL (NEGATIVE); KETONES,URINE 60 mg/dL (NEGATIVE); LEUKOCYTE ESTERASE ,URINE NEGATIVE Leu/uL (NEGATIVE); NITRATE,URINE NEGATIVE (NEGATIVE); OCCULT BLOOD,URINE NEGATIVE (NEGATIVE); PROTEIN,URINE 20 mg/dL (NEGATIVE); UROBILINOGEN,URINE 0.2 mg/dL (0.2-1.0)
[2024-06-05 08:32] LABS: ADD UA MICROSCOPIC YES
[2024-06-05 08:33] LABS: BACTERIA,URINE RARE /HPF (None Seen); MUCUS,URINE RARE LPF (None Seen); SQUAMOUS EPITHELIAL CELL,UR RARE /HPF (0-2); WBC,URINE 0-1 /HPF (0-1)
[2024-06-05] MEDS ORDERED: IOHEXOL 350 MG/ML 100ML INFUS..BTL IV ONE (09:05)
[2024-06-05] MEDS: PANTOPrazole 40 MG/VIAL IVP ONE (09:41)
[2024-06-05] MEDS: VANCOMYCIN KIT 1 GM/250 ML IV.KIT IV ONE (09:42)
--- NOTE | 2024-06-05 09:46 | HMCIMG ---
CT ABDOMEN/PELVIS W/CONTRAST HISTORY: Abdominal pain COMPARISON: 12/21/2019 TECHNIQUE: Multiple sequential axial images of the abdomen and pelvis were obtained from the dome of the diaphragm through symphysis pubis. Patient was given 100 cc of Omnipaque through intravenous route. Oral contrast was not given. FINDINGS: No pleural effusion is seen bilaterally. There is no evidence of parenchymal disease or pulmonary nodule of the visualized lower lungs. Degenerative changes of the thoracolumbar spine are present. The heart is not enlarged. Liver measures 13 cm. Gastric distention with small bowel dilatation is seen with transitional point at the level of jejunum consistent with bowel obstruction. The liver, spleen, adrenal glands and pancreas are unremarkable. There is no evidence of hydronephrosis bilaterally. No evidence of renal stone is seen. Fecal material is seen in the colon. There are normal size retroperitoneal and mesenteric lymph nodes. No ascites is seen. Atherosclerotic changes are present. No CT evidence of acute appendicitis is seen. There is diverticulosis. Pelvic sidewalls are symmetric bilaterally. Bladder is well distended without wall thickening. IMPRESSION: 1. Gastric distention with small bowel dilatation is seen with transitional point at the level of jejunum consistent with bowel obstruction. CT was performed with one or more following dose reduction techniques: automated exposure control, adjustment of the mA and kv according to patient's size, or use of a iterative reconstruction technique.
[2024-06-05] MEDS ORDERED: acetaMINOPHEN 650 MG SUPPOSITORY RC PRN (10:00)
[2024-06-05] MEDS: INSULIN LISpro 100 UNIT/ML 3ML SQ SCH (11:30)
--- NOTE | 2024-06-05 11:39 | HMCIMG ---
ABD 1VW HISTORY: NG tube placement COMPARISON: None FINDINGS: A frontal projection of the abdomen was obtained. A nonspecific bowel gas pattern is seen. Fecal material is seen in the colon. Bladder is moderately distended with contrast material. IMPRESSION: 1. A nonspecific bowel gas pattern is seen.
[2024-06-05] MEDS: DEXTROSE 5 % AND 0.9 % NACL 1,000 ML IV SCH (11:45)
--- NOTE | 2024-06-05 14:55 | NUR ---
DR. MELARA IN TO SEE PT AND HAS ADVISED US TO CONTACT DR. VEGA CAUSE HE DID SURGURY ON HIM LAST WEEK, AND DR. RICHMOND HARRISON AT BEDSIDE AGREED.
--- NOTE | 2024-06-05 15:01 | NUR ---
ATTEMPT TO CALL REPORTS X1
[2024-06-05 15:30] VITALS: BP 110/72; PULSE 59; RESP 18; TEMP 98.2
[2024-06-05 19:00] VITALS: BP 114/60; PULSE 84; RESP 18; TEMP 97.6
[2024-06-05 20:00] VITALS: O2SAT 97
--- NOTE | 2024-06-05 22:01 | NUR ---
DR.MARTINEZ MORE AWARE OF PATIENT BEING ADMITTED AND UPDATED DOCTOR ON PATIENT STATUS. NO NEW ORDERS AT THIS TIME AND DOCTOR'S TEAM WILL ROUND IN AM. PATIENT AND FAMILY AT BEDSIDE AWARE. Addendum: 06/05/24 at 2205 by IRVING FINK RN RN Amended: Links added.
[2024-06-05 23:00] VITALS: BP 141/76; PULSE 87; RESP 19; TEMP 97.7
[2024-06-06] VITALS (8 sets, daily range): BP systolic 116–140; BP diastolic 57–79; PULSE 69–83; RESP 18–19; TEMP 98–98.8; O2SAT 96–97
--- NOTE | 2024-06-06 00:44 | HP ---
DATE OF SERVICE: 06/05/2024 HISTORY AND PHYSICAL PRESENTING COMPLAINT: Nausea, vomiting, and abdominal pain. HISTORY OF PRESENT ILLNESS: A 74-year-old male with history of diabetes mellitus, hypertension, hiatal hernia, and dyslipidemia, who presented to the hospital with 1 day history of nausea, vomiting and abdominal pain. The patient claims he threw up more than 10 times yesterday. No fever or chills. Abdominal pain localized to the lower quadrant and periumbilical area. The patient recently had laparoscopic cholecystectomy and repair of hiatal hernia. The patient had CT of the abdomen done in the Emergency Room shows small bowel obstruction. NG tube was inserted, with about 1.5 liters of fluid drained. PAST MEDICAL HISTORY: * Diabetes mellitus. * Hypertension. * Dyslipidemia. * Hiatal hernia. * Osteoarthritis. * BPH. PAST SURGICAL HISTORY: * Total knee arthroplasty. * Hiatal hernia repair. * Cholecystectomy. ALLERGIES: No known drug allergy. HOME MEDICATIONS: Reviewed. SOCIAL HISTORY: Lives with . No alcohol, tobacco or illicit drug use. FAMILY HISTORY: Positive for diabetes mellitus. REVIEW OF SYSTEMS: CONSTITUTIONAL: No fever or chills. No weight loss or night sweats. EYES: No eye pain, no photophobia or diplopia. HENT: No sore throat, no rhinorrhea or earache. NECK: No neck pain or neck swelling. RESPIRATORY: Denied cough, hemoptysis or pleuritic pain. CARDIOVASCULAR: No chest pain, no palpitation or orthopnea. GASTROINTESTINAL: Positive for nausea, vomiting, and abdominal pain, no diarrhea. GENITOURINARY: No dysuria, urgency or urinary frequency. CENTRAL NERVOUS SYSTEM: No headache, dyspnea, or slurred speech. PSYCHIATRY: No depression. No suicidal ideation. MUSCULOSKELETAL: No joint pain or joint swelling. PHYSICAL EXAMINATION: GENERAL: An elderly male, awake. VITAL SIGNS: Temperature 98.1, pulse 90, respiratory rate 21, and BP 133/79. EYES: No icterus. Pupils equal and reactive. HENT: No oral thrush seen. Moist oral mucosa. NECK: Supple, no JVD or thyromegaly. LUNGS: Good air entry. No rales, no rhonchi. CARDIOVASCULAR: S1, S2 regular. No murmur heard. ABDOMEN: Full, soft. Bowel sounds present. CENTRAL NERVOUS SYSTEM: Awake, alert, and oriented x 3. No focal deficits. SKIN: No rashes, no itchiness. LYMPHATIC: No peripheral lymphadenopathy. BACK: No deformity, no pressure ulcer. HEMATOLOGIC: No bleeding or petechial lesion seen. MUSCULOSKELETAL: No joint swelling, erythema or tenderness. LABORATORY DATA: Sodium 142, potassium 4.4, BUN 20, and creatinine 1.4. WBC 12.0, hemoglobin 19.1, and platelets 243. RADIOLOGY: CT of the abdomen shows small bowel obstruction. ASSESSMENT: A 74-year-old male presenting with nausea, vomiting, and abdominal pain. CURRENT PROBLEMS: Include: * Small bowel obstruction. * Abdominal pain. * Dehydration. * Acute renal failure. * Diabetes mellitus. * Hypertension. PLAN: * The patient admitted to medical floor. * The patient made n.p.o. * NG tube to low intermittent suction. * Lovenox for DVT prophylaxis. * The patient will be placed on IV fluid. * Morphine as needed for pain. * Zofran as needed for nausea and vomiting. * Monitor electrolytes. * Avoid nephrotoxic medication. TID: [id number] RECEIPT: [id number]
[2024-06-06 04:56] LABS: BASOPHILS # (AUTO) 0.03 K/uL (0.00-0.20); BASOPHILS % (AUTO) 0.3 % (0.0-5.0); EOSINOPHILS # (AUTO) 0.04 K/uL (0.00-0.70); EOSINOPHILS % (AUTO) 0.5 % (0.0-8.0); HEMATOCRIT 49.1 % (42-54); IMMATURE GRANULOCYTE ABSOLUTE 0.04 K/uL (0-1); LYMPHOCYTES # (AUTO) 0.7 K/uL (1.0-4.8); LYMPHOCYTES % (AUTO) 8.3 % (21.0-51.0); MEAN CORPUSCULAR HEMOGLOBIN 33.1 pg (27.0-33.0); MEAN CORPUSCULAR HGB CONC 34.6 g/dL (32.0-36.0); MEAN CORPUSCULAR VOLUME 95.7 fL (79-99); MONOCYTES # (AUTO) 1.3 K/uL (0.1-1.0); MONOCYTES % (AUTO) 14.8 % (3.0-13.0); NEUTROPHILS # (AUTO) 6.6 K/uL (1.8-7.7); NEUTROPHILS % (AUTO) 75.6 % (40.0-77.0); PLATELET COUNT (AUTO) 234 K/uL (130-400); RED BLOOD CELL COUNT(AUTO) 5.13 MIL/uL (4.50-6.20); RED CELL DISTRIBUTION WIDTH 12.7 % (11.0-15.5); WHITE BLOOD COUNT (AUTO) 8.8 K/uL (4.8-10.8)
[2024-06-06 05:15] LABS: BILIRUBIN,TOTAL 0.8 mg/dL (0.2-1.0); CREATININE 1.4 mg/dL (0.5-1.3); MAGNESIUM 2.5 mg/dL (1.80-2.40); POTASSIUM 4.8 mmol/L (3.5-5.1); TOTAL PROTEIN, SERUM 7.8 g/dL (6.0-8.3)
[2024-06-06] MEDS: morPHINE 2 MG SYG IVP PRN (05:27)
[2024-06-06] MEDS: ENOXAPARIN SODIUM 30 MG/0.3 ML SQ SCH (08:04)
[2024-06-06] MEDS ORDERED: BISA-151 PO (09:25)
[2024-06-06] MEDS ORDERED: FAMO40TA7 PO (09:25)
[2024-06-06] MEDS ORDERED: TRAM-543 PO (09:25)
--- NOTE | 2024-06-06 11:25 | CONS ---
GENERAL SURGERY CONSULTATION NOTE Date/Time Patient Seen: [06/06/24 at 10:45am ] Requesting Physician: [ ] Reason for Consultation: [abdominal pain, distension in setting of 1wk post-op ] History of Present Illness: [ The patient is a pleasant 74 yo M s/p robotic HHR with gastrojejunostomy for gastroparesis and cholecystectomy done 05/29/24.The patient was evaluated in clinic 06/04/24 and was doing well, instructed to advance diet to purees and reports later that evening he began developing nausea, distension and abdominal pain. The patient was evaluated at the ER and was admitted due to a possible small bowel obstruction. NG tube placed on LIS with bilious output. Currently NPO. Overnight patient reports one small bowel movement. On exam patient is afebrile, with a non-distended abdomen with regular bowel sounds. No tenderness to palpation. Denies any pain. ] Past Medical History: [ gastroparesis diaphragmatic hernia] Past Surgical History: [05/29/24 - HHR with loop gastrojejunostomy and cholecystectomy ] Family History: [ ] Social History: [ ] Habits: [Never] smoker. [Denies] alcohol consumption. [Denies] illicit drug use Current Medications Medications (Trade) Dose Ordered Sig/Bridgette Route Start Time Stop Time Status Last Admin Dose Admin Cefepime HCl (MAXipime 1 GM vial) 1 gm Q8H IVPB 06/05/24 06:30 06/15/24 06:29 06/06/24 05:30 1 GM Dextrose/Sodium Chloride 1,000 ml @ 75 mls/hr [id number] IV 06/05/24 10:00 07/05/24 09:59 06/05/24 11:45 75 MLS/HR Enoxaparin Sodium (Lovenox) 30 mg DAILY SQ 06/06/24 09:00 07/06/24 08:59 06/06/24 08:04 30 MG Insulin Human Lispro (HumaLOG LISpro 100 UNIT/ML 3ML) INSULIN SLIDING SCAL... ACHS SQ 06/05/24 11:30 07/05/24 11:29 Review of Systems: CONST: [No fever, fatigue, or weight changes.] EYES: [No recent vision problems.] ENT: [No congestion, ear pain, or sore throat.] C/V: [No chest pain, palpitations, or edema.] RESP: [No cough, congestion, wheezing or shortness of breath.] GI: [No abdominal pain, nausea, vomiting, constipation, or diarrhea.] : [No incontinence or dysuria.] SKIN: [No rash.] NEURO: [No headache, focal numbness or weakness, dizziness, or seizures.] PSYCH: [No depression or anxiety.] HEME: [No abnormal bruising or bleeding.] LYMPH: [No swollen glands.] Physical Examination: GENERAL: [No acute distress.] HEAD: [Normal with no signs of head trauma.] EYES: [PERRLA, EOMI, conjunctiva and sclera normal.] ENT: [Hearing grossly intact, normal oropharynx.] NECK: [Supple without JVD. There is no tenderness, lymphadenopathy, or masses. No thyromegaly. Normal carotid upstrokes without bruits.] LUNGS: [Clear breath sounds bilaterally. There are right basilar rales one third of the way up the chest. No wheezes, or rhonchi.] HEART: [Normal rate and rhythm. Normal S1 and S2 without mumurs, gallop or rub.] VASC: [Peripheral pulses +2 bilaterally.] ABD: [Bowel sounds normal, soft, nontender, no masses, no organomegaly. No audible bruits.] : [Not examined] LYMPH: [No lymphadenopathy noted.] EXT: [No clubbing, cyanosis or edema.] SKIN: [No rashes or lesions noted.] NEURO: [Awake, alert, and oriented x3. No focal sensory or strength deficits noted.] Vital Signs (last 8hr) Date Time Temp Pulse Resp B/P (MAP) Pulse Ox O2 Delivery O2 Flow Rate FiO2 06/06/24 08:00 98.8 83 18 132/71 97 Room Air 21 06/06/24 04:00 98.1 75 19 116/57 95 Room Air Laboratory: [ ] Hematology Labs: Test 06/06/24 04:33 06/05/24 06:23 Range/Units White Blood Count 8.8 # 4.8-10.8 K/uL Red Blood Count 5.13 4.50-6.20 MIL/uL Hemoglobin 17.0 14.0-18.0 g/dL Hematocrit 49.1 42-54 % Mean Corpuscular Volume 95.7 79-99 fL Mean Corpuscular Hemoglobin 33.1 H 27.0-33.0 pg Mean Corpuscular Hemoglobin Concent 34.6 32.0-36.0 g/dL Red Cell Distribution Width 12.7 11.0-15.5 % Platelet Count 234 130-400 K/uL Mean Platelet Volume 10.1 7.5-10.5 fL Immature Granulocyte % (Auto) 0.5 0-1 % Neutrophils (%) (Auto) 75.6 40.0-77.0 % Lymphocytes (%) (Auto) 8.3 L 21.0-51.0 % Monocytes (%) (Auto) 14.8 H 3.0-13.0 % Eosinophils (%) (Auto) 0.5 0.0-8.0 % Basophils (%) (Auto) 0.3 0.0-5.0 % Neutrophils # (Auto) 6.6 1.8-7.7 K/uL Lymphocytes # (Auto) 0.7 L 1.0-4.8 K/uL Monocytes # (Auto) 1.3 H 0.1-1.0 K/uL Eosinophils # (Auto) 0.04 0.00-0.70 K/uL Basophils # (Auto) 0.03 0.00-0.20 K/uL Absolute Immature Granulocyte (auto 0.04 0-1 K/uL Nucleated Red Blood Cells 0.0 0.0-0.19 % Segmented Neutrophils % 92 H 40-70 % Band Neutrophils % 2 0-2 % Lymphocytes % (Manual) 1 L 22-44 % Monocytes % (Manual) 2 2-9 % Differential Comment MANUAL DIFFERENTIAL Reactive Lymphocytes 3 H 0-0 % White Cell Morphology Comment Platelet Morphology Comment ADEQUATE Red Blood Cell Morphology NORMAL Chemistry Labs: Test 06/06/24 05:36 06/06/24 04:33 06/05/24 06:23 Range/Units Whole Blood Glucose 164 H 70-110 MG/DL Sodium Level 140 136-145 mmol/L Potassium Level 4.8 3.5-5.1 mmol/L Chloride Level 99 L 101-111 mmol/L Carbon Dioxide Level 32 21-32 mmol/L Blood Urea Nitrogen 36 H 7-18 mg/dL Creatinine 1.4 H 0.5-1.3 mg/dL Glomerular Filtration Rate Calc 53 >90 mL/min Random Glucose 148 H 70-105 mg/dL Total Calcium 9.8 8.5-10.1 mg/dL Magnesium Level 2.50 H 1.80-2.40 mg/dL Total Bilirubin 0.8 0.2-1.0 mg/dL Aspartate Amino Transf (AST/SGOT) 12 10-37 U/L Alanine Aminotransferase (ALT/SGPT) 21 # 12-78 U/L Alkaline Phosphatase 98 50-136 U/L Total Protein 7.8 6.0-8.3 g/dL Albumin 4.0 3.5-5.0 g/dL Amylase Level 79 25-115 U/L Lipase 41 16-77 U/L Diagnostics / Radiology: [[facility] [address] [place] [address] IMAGING REPORT Signed PATIENT: KINGSTON FINLEY MR#: [id number] : 1950 SEX: M AGE: 74 LOCATION: [facility] ORDER 1 STATUS: REG REPORT#: [id number] SERVICE 08 REASON: abd pain ORDERING PHYSICIAN: RYAN DELEON MD PROCEDURE: ABD PEL W - CT ABDOMEN/PELVIS W/CONTRAST CT ABDOMEN/PELVIS W/CONTRAST HISTORY: Abdominal pain COMPARISON: 12/21/2019 TECHNIQUE: Multiple sequential axial images of the abdomen and pelvis were obtained from the dome of the diaphragm through symphysis pubis. Patient was given 100 cc of Omnipaque through intravenous route. Oral contrast was not given. FINDINGS: No pleural effusion is seen bilaterally. There is no evidence of parenchymal disease or pulmonary nodule of the visualized lower lungs. Degenerative changes of the thoracolumbar spine are present. The heart is not enlarged. Liver measures 13 cm. Gastric distention with small bowel dilatation is seen with transitional point at the level of jejunum consistent with bowel obstruction. The liver, spleen, adrenal glands and pancreas are unremarkable. There is no evidence of hydronephrosis bilaterally. No evidence of renal stone is seen. Fecal material is seen in the colon. There are normal size retroperitoneal and mesenteric lymph nodes. No ascites is seen. Atherosclerotic changes are present. No CT evidence of acute appendicitis is seen. There is diverticulosis. Pelvic sidewalls are symmetric bilaterally. Bladder is well distended without wall thickening. IMPRESSION: 1. Gastric distention with small bowel dilatation is seen with transitional point at the level of jejunum consistent with bowel obstruction. CT was performed with one or more following dose reduction techniques: automated exposure control, adjustment of the mA and kv according to patient's size, or use of a iterative reconstruction technique. DICTATED BY: MIRANDA JACQUES MD DATE: 06/05/24941 ELECTRONICALLY SIGNED BY: MIRANDA JACQUES MD DATE: 06/05/24945 ] Assessment: [Patient with a non-distended abdomen. reg bowel sounds. Reports one bowel movement this am. NG tube in place on LIS with decreasing output. Patient denies any pain at the moment. No indications for surgery. ] Plan: [Supportive care. Conservative management. Continue NGT on LIS until output is minimal. May attempt a trial of clamping the tube once patient is asymptomatic and with minimal output If no nausea or distension symptoms, patient may begin ice chips / clear liquids upright. Please call with any change in clinical status ] AYE HADDAD Jun 06, 2024 11:25
--- NOTE | 2024-06-06 17:00 | NUR ---
MET W PATIENT FOR DC [PLANNING READMISSION AFTER ABDOMINAL SURGERY WITH ILEUS/SBO, SEEN W NGT TO LIS. DENIES PAIN AT THIS TIME , EX SPOUSE AT BEDSIDE. CONFIRMS LIVES W SON, KINGSTON ESTRADA WHO WILL PROVIDE TRANSPORT ON DISCHARGE. STATES PREVIOUSLY INDEPENDENT, DDRIVES, NO DME, NO PROVIDER, NO SERVICES, DC PLAN [facility] UNLESS OTHER NEEDS COME UP, CM CAN BE RECONSULTED IF NEEDED
--- NOTE | 2024-06-06 22:51 | PN ---
INFECTIOUS DISEASE FOLLOWUP NOTE DATE OF SERVICE: 06/06/2024 SUBJECTIVE: The patient is seen and examined at bedside today. The patient has no fever, no chills. No nausea, no vomiting. No bleeding tendency. Denied depression. No suicidal ideation. No slurred speech or limb weakness. No dysuria or hematuria. NG tube is in place. PHYSICAL EXAMINATION: VITAL SIGNS: Temperature 97.2. EYES: No icterus. Pupils equal and reactive. HENT: No oral lesions seen. Moist oral mucosa. NECK: Supple, no JVD or thyromegaly. LUNGS: Good air entry. No rales, no rhonchi. CARDIOVASCULAR: S1, S2, regular. No murmur heard. ABDOMEN: Full, soft. Bowel sounds are present. CENTRAL NERVOUS SYSTEM: Awake, alert, oriented x 3. No focal deficits. SKIN: No rashes, no itchiness. LYMPHATIC: No peripheral lymphadenopathy. BACK: No deformity, no pressure ulcer. ASSESSMENT: A 74-year-old male presented with nausea and vomiting. CURRENT PROBLEMS: Include: * Small bowel obstruction. * Dehydration. * Hypertension. * Obesity. * Diabetes mellitus. * Debility. PLAN: * Continue IV fluid. * Continue pain management. * Continue nutritional support. * Continue GI prophylaxis. * Continue antiemetics. * Monitor electrolytes. * The patient will be followed up closely. TID: [id number] RECEIPT: [id number]
[2024-06-07] VITALS (7 sets, daily range): BP systolic 120–166; BP diastolic 63–80; PULSE 65–71; RESP 18–19; TEMP 97.6–99.7; O2SAT 95
[2024-06-07 05:01] LABS: HEMATOCRIT 45.1 % (42-54); MEAN CORPUSCULAR HEMOGLOBIN 32.9 pg (27.0-33.0); MEAN CORPUSCULAR HGB CONC 34.6 g/dL (32.0-36.0); MEAN CORPUSCULAR VOLUME 95.1 fL (79-99); RED BLOOD CELL COUNT(AUTO) 4.74 MIL/uL (4.50-6.20); RED CELL DISTRIBUTION WIDTH 12.5 % (11.0-15.5); WHITE BLOOD COUNT (AUTO) 7.1 K/uL (4.8-10.8)
[2024-06-07 05:16] LABS: CREATININE 1.2 mg/dL (0.5-1.3); MAGNESIUM 2.4 mg/dL (1.80-2.40); POTASSIUM 3.2 mmol/L (3.5-5.1)
[2024-06-07] MEDS ORDERED: MAGNESIUM CITRATE 296 ML SOLUTION NG ONE (12:00)
--- NOTE | 2024-06-07 12:03 | NUR ---
DCP: HOME Pt is but currently from [facility] [phone]. PT and at bedside. Pt lives with son Yan [facility] Jr [phone] in home. Pt reports he is independent of all ADLS, drives, uses no DME or in home care services. PCP is Dr Gracia and uses [facility] for rx. Denies need for SNF, will return home at wi.
--- NOTE | 2024-06-07 14:00 | CONS ---
GENERAL SURGERY CONSULTATION NOTE Date/Time Patient Seen: [06/07/24 13:30] Requesting Physician: [ ] Reason for Consultation: [ SBO] History of Present Illness: [ The patient is a pleasant 74 yo M s/p robotic HHR with gastrojejunostomy for gastroparesis and cholecystectomy done 05/29/24.The patient was evaluated in clinic 06/04/24 and was doing well, instructed to advance diet to purees and reports later that evening he began developing nausea, distension and abdominal pain. The patient was evaluated at the ER and was admitted due to a possible small bowel obstruction. NG tube placed on LIS with bilious output. Currently NPO. Overnight patient reports one small bowel movement. On exam patient is afebrile, with a non-distended abdomen with regular bowel sounds. No tenderness to palpation. Denies any pain. 06/07/24: The patient underwent a trial of NGT clamp. patient advanced to a clear liquid diet. Patient tolerated breakfast very well, lunch trial patient began to experience nausea, and emesis. The patient is visibly distended with reg bowel sounds. afebrile. Pain tolerable but progressing. Patient denies any bowel movements this morning but states he feels he needs to. no other issues.. ] Past Medical History: [ gastroparesis diaphragmatic hernia] Past Surgical History: [05/29/24 - HHR with loop gastrojejunostomy and cholecystectomy ] Family History: [ ] Social History: [ ] Habits: [Never] smoker. [Denies] alcohol consumption. [Denies] illicit drug use Current Medications Medications (Trade) Dose Ordered Sig/Bridgette Route Start Time Stop Time Status Last Admin Dose Admin Cefepime HCl (MAXipime 1 GM vial) 1 gm Q8H IVPB 06/05/24 06:30 06/06/24 11:22 DC 06/06/24 05:30 1 GM Dextrose/Sodium Chloride 1,000 ml @ 75 mls/hr [id number] IV 06/05/24 10:00 07/05/24 09:59 06/07/24 02:00 75 MLS/HR Enoxaparin Sodium (Lovenox) 30 mg DAILY SQ 06/06/24 09:00 07/06/24 08:59 06/07/24 08:11 30 MG Insulin Human Lispro (HumaLOG LISpro 100 UNIT/ML 3ML) INSULIN SLIDING SCAL... ACHS SQ 06/05/24 11:30 07/05/24 11:29 Review of Systems: CONST: [No fever, fatigue, or weight changes.] EYES: [No recent vision problems.] ENT: [No congestion, ear pain, or sore throat.] C/V: [No chest pain, palpitations, or edema.] RESP: [No cough, congestion, wheezing or shortness of breath.] GI: [No abdominal pain, nausea, vomiting, constipation, or diarrhea.] : [No incontinence or dysuria.] SKIN: [No rash.] NEURO: [No headache, focal numbness or weakness, dizziness, or seizures.] PSYCH: [No depression or anxiety.] HEME: [No abnormal bruising or bleeding.] LYMPH: [No swollen glands.] Physical Examination: GENERAL: [No acute distress.] HEAD: [Normal with no signs of head trauma.] EYES: [PERRLA, EOMI, conjunctiva and sclera normal.] ENT: [Hearing grossly intact, normal oropharynx.] NECK: [Supple without JVD. There is no tenderness, lymphadenopathy, or masses. No thyromegaly. Normal carotid upstrokes without bruits.] LUNGS: [Clear breath sounds bilaterally. There are right basilar rales one third of the way up the chest. No wheezes, or rhonchi.] HEART: [Normal rate and rhythm. Normal S1 and S2 without mumurs, gallop or rub.] VASC: [Peripheral pulses +2 bilaterally.] ABD: [Bowel sounds normal, distended, nontender, no masses, no organomegaly. No audible bruits.] : [Not examined] LYMPH: [No lymphadenopathy noted.] EXT: [No clubbing, cyanosis or edema.] SKIN: [No rashes or lesions noted.] NEURO: [Awake, alert, and oriented x3. No focal sensory or strength deficits noted.] Vital Signs (last 8hr) Date Time Temp Pulse Resp B/P (MAP) Pulse Ox O2 Delivery O2 Flow Rate FiO2 06/07/24 12:29 97.5 69 18 151/70 98 06/07/24 08:11 95 Room Air* 0 21 06/07/24 07:58 97.9 65 18 120/68 95 Laboratory: [ ] Hematology Labs: Test 06/07/24 04:33 06/06/24 04:33 Range/Units White Blood Count 7.1 4.8-10.8 K/uL Red Blood Count 4.74 4.50-6.20 MIL/uL Hemoglobin 15.6 14.0-18.0 g/dL Hematocrit 45.1 42-54 % Mean Corpuscular Volume 95.1 79-99 fL Mean Corpuscular Hemoglobin 32.9 27.0-33.0 pg Mean Corpuscular Hemoglobin Concent 34.6 32.0-36.0 g/dL Red Cell Distribution Width 12.5 11.0-15.5 % Platelet Count 236 130-400 K/uL Mean Platelet Volume 10.3 7.5-10.5 fL Nucleated Red Blood Cells 0.0 0.0-0.19 % Immature Granulocyte % (Auto) 0.5 0-1 % Neutrophils (%) (Auto) 75.6 40.0-77.0 % Lymphocytes (%) (Auto) 8.3 L 21.0-51.0 % Monocytes (%) (Auto) 14.8 H 3.0-13.0 % Eosinophils (%) (Auto) 0.5 0.0-8.0 % Basophils (%) (Auto) 0.3 0.0-5.0 % Neutrophils # (Auto) 6.6 1.8-7.7 K/uL Lymphocytes # (Auto) 0.7 L 1.0-4.8 K/uL Monocytes # (Auto) 1.3 H 0.1-1.0 K/uL Eosinophils # (Auto) 0.04 0.00-0.70 K/uL Basophils # (Auto) 0.03 0.00-0.20 K/uL Absolute Immature Granulocyte (auto 0.04 0-1 K/uL Chemistry Labs: Test 06/07/24 11:15 06/07/24 04:33 06/06/24 16:46 06/06/24 04:33 Range/Units Whole Blood Glucose 151 H 70-110 MG/DL Sodium Level 140 136-145 mmol/L Potassium Level 3.2 L 3.5-5.1 mmol/L Chloride Level 100 L 101-111 mmol/L Carbon Dioxide Level 33 H 21-32 mmol/L Blood Urea Nitrogen 29 H 7-18 mg/dL Creatinine 1.2 0.5-1.3 mg/dL Glomerular Filtration Rate Calc 64 >90 mL/min Random Glucose 132 H 70-105 mg/dL Total Calcium 9.1 8.5-10.1 mg/dL Magnesium Level 2.40 1.80-2.40 mg/dL Bedside Glucose Comment Notified Nurse Total Bilirubin 0.8 0.2-1.0 mg/dL Aspartate Amino Transf (AST/SGOT) 12 10-37 U/L Alanine Aminotransferase (ALT/SGPT) 21 # 12-78 U/L Alkaline Phosphatase 98 50-136 U/L Total Protein 7.8 6.0-8.3 g/dL Albumin 4.0 3.5-5.0 g/dL Diagnostics / Radiology: [facility] [address] [address] IMAGING REPORT Signed PATIENT: KINGSTON FINLEY MR#: [id number] : 1950 SEX: M AGE: 74 LOCATION: [facility] ORDER 1 STATUS: REG ER REPORT#: [id number] SERVICE 1 REASON: abd pain ORDERING PHYSICIAN: RYAN DELEON MD PROCEDURE: ABD PEL W - CT ABDOMEN/PELVIS W/CONTRAST CT ABDOMEN/PELVIS W/CONTRAST HISTORY: Abdominal pain COMPARISON: 12/21/2019 TECHNIQUE: Multiple sequential axial images of the abdomen and pelvis were obtained from the dome of the diaphragm through symphysis pubis. Patient was given 100 cc of Omnipaque through intravenous route. Oral contrast was not given. FINDINGS: No pleural effusion is seen bilaterally. There is no evidence of parenchymal disease or pulmonary nodule of the visualized lower lungs. Degenerative changes of the thoracolumbar spine are present. The heart is not enlarged. Liver measures 13 cm. Gastric distention with small bowel dilatation is seen with transitional point at the level of jejunum consistent with bowel obstruction. The liver, spleen, adrenal glands and pancreas are unremarkable. There is no evidence of hydronephrosis bilaterally. No evidence of renal stone is seen. Fecal material is seen in the colon. There are normal size retroperitoneal and mesenteric lymph nodes. No ascites is seen. Atherosclerotic changes are present. No CT evidence of acute appendicitis is seen. There is diverticulosis. Pelvic sidewalls are symmetric bilaterally. Bladder is well distended without wall thickening. IMPRESSION: 1. Gastric distention with small bowel dilatation is seen with transitional point at the level of jejunum consistent with bowel obstruction. CT was performed with one or more following dose reduction techniques: automated exposure control, adjustment of the mA and kv according to patient's size, or use of a iterative reconstruction technique. DICTATED BY: MIRANDA JACQUES MD DATE: 06/05/24941 ELECTRONICALLY SIGNED BY: MIRANDA JACQUES MD DATE: 06/05/24945 ] Assessment: [Patient with mildly distended abdomen. reg bowel sounds. Reports needing to have a bowel movement, no flatus. NG tube is clamped. Issues on clear liquid diet. Nausea and emesis this afternoon. ] Plan: [Supportive care. Conservative management. Continue NGT on LIS Consider KUB and suppository to aid in bowel movement. Please call with any change in clinical status ] AYE HADDAD Jun 07, 2024 14:00
[2024-06-07] MEDS: ondanSETRON 4MG INJ IVP PRN (14:11)
[2024-06-07] MEDS: BisaCODYL 10 MG SUPP.RECT RC ONE (14:15)
--- NOTE | 2024-06-07 14:43 | HMCIMG ---
ABD 1VW HISTORY: ABD PAIN TECHNIQUE: ABD 1VW. COMPARISON: 06/05/2024 FINDINGS/IMPRESSION: Dilated loops of small bowel seen in the mid abdomen measuring up to 5.2 cm consistent bowel obstruction. Enteric tube terminates in the stomach. Degenerative changes of the spine are seen.
[2024-06-07] MEDS ORDERED: hydrALAZine 20MG/ML VIAL IV PRN (17:30)
[2024-06-07] MEDS: PoTASSium chloRIDE 20MEQ/100ML 100 ML IV PRN (18:12)
[2024-06-08] VITALS (7 sets, daily range): BP systolic 107–146; BP diastolic 62–76; PULSE 60–71; RESP 17–20; TEMP 97.9–98.3; O2SAT 97–99
[2024-06-08 06:04] LABS: MAGNESIUM 2.5 mg/dL (1.80-2.40)
[2024-06-08 06:10] LABS: POTASSIUM 2.7 mmol/L (3.5-5.1)
--- NOTE | 2024-06-08 09:23 | PN ---
INFECTIOUS DISEASE FOLLOWUP NOTE DATE OF SERVICE: 06/07/2024 SUBJECTIVE: The patient is seen and examined at bedside today. No fever, no chills. Has some abdominal pain. The patient ____ . The patient was given ____ by General Surgery. No dysuria, hematuria. PHYSICAL EXAMINATION: VITAL SIGNS: Temperature 96.5. EYES: No icterus. Pupils equal and reactive. HENT: No oral lesions seen. Moist oral mucosa. NECK: Supple, no JVD or thyromegaly. LUNGS: Good air entry. No rales, no rhonchi. CARDIOVASCULAR: S1, S2 regular. No murmur heard. ABDOMEN: Full, soft. Bowel sound is present. CENTRAL NERVOUS SYSTEM: Awake, oriented x 3. No focal deficits. SKIN: No rashes, no itchiness. LYMPHATIC: No peripheral lymphadenopathy. BACK: No deformity, no pressure ulcer. MUSCULOSKELETAL: No joint swelling, erythema or tenderness. ASSESSMENT: A 74-year-old male presenting with abdominal pain, nausea and vomiting. CURRENT PROBLEMS: Include: * Small bowel obstruction. * Dehydration. * Nausea and vomiting. * Hypertension. * Diabetes mellitus. PLAN: * Continue liquid diet. * Continue pain management. * Continue antidiabetic. * Continue IV fluid. * Monitor electrolytes. * Continue GI prophylaxis. TID: [id number] RECEIPT: [id number]
--- NOTE | 2024-06-08 16:38 | NUR ---
Nutrition consult per small bowel obstruction Reviewed labs, notes, and medications. Pt with dextrose @ 75 ml/hr, emesis more than 10 x POA, NG tube in place, 1.5L fluid drained, abd distended, recent procedure s/p hiatal hernia repair early May. , NPO, IV fluid, hypokalemia 2.6, elevated BUN 23, Cr WNL, hyperglycemia 157, hypermagnesemia 2.50 per chart review. Wt via standing scale, last BM 06/06/24, constipated prior, well nourished, abd incision wound, balance of 1.1 L 06/08/24 per nursing. Dextrose @ 75 ml/hr x 24 hrs provides 90 gm CHO, 306 kcals per day. Consider alternate means of nutrition via PPN or TPN if diet is not advanced. Pt has been NPO since admin, 3 days NPO. Recommendations: -Advance diet when medically feasible -Monitor BM -Monitor electrolytes -Replenish electrolytes per protocol -Monitor wts -Reweigh as able -Order Vit D, vit b-12 labs to rule out deficiencies -Provide b-complex when medically feasible -Monitor goals of care RD to follow + available for consult per protocol Addendum: 06/08/24 at [address] Amended: Links added.
--- NOTE | 2024-06-08 16:43 | HMCIMG ---
ABD 1VW REASON: SBO FINDINGS: Single image of the abdomen was obtained. There is an NG tube with tip in stomach. The bowel loop pattern appears near normal, there are no visible dilated loops remaining. Bones and soft tissues appear unremarkable. IMPRESSION: 1. Improved bowel gas pattern.
--- NOTE | 2024-06-08 16:43 | NUR ---
ENEMAS TWO SOAP SERGIO ENEMAS WERE DONE AT 1230 FOLLOWED BY A THIRD AT 1430. PATIENT HAD THREE BMS, GREEN IN COLOR. PATIENT RATES OVERALL PAIN 2/10. HE IS TENDER TO THE TOUCH. ABDOMEN IS SOFT AND FLAT. PATIENT WAS PASSING GAS THIS MORNING BUT SINCE THE ENEMAS HAS NOT PASSED GAS. NG TUBE WAS CONNECTED TO LIS FROM 2599-2919. NG TUBE WAS CLAMPED FROM 6498-7150. PATIENT WAS RECONNECTED TO THE NG TUBE AT 1500. SETH VEGA WAS NOTIFIED OF THE SITUATION THIS MORNING AT 1100. HE WAS UPDATED AT 1530. PER SETH VEGA, "NO MORE ENEMAS FOR NOW. CONTINUE CONSERVATIVE MEASURES FOR NOW. OKAY TO RESTART CLEARS IF CLINICALLY PATIENT SHOWS SIGNS OF IMPROVEMENT." I DID NOTIFY HIM THAT A KUB WAS DONE. REPEAT KUB ORDERED FOR TOMORROW MORNING.
--- NOTE | 2024-06-08 17:21 | PN ---
INFECTIOUS DISEASE PROGRESS NOTE Date of Service: Jun 08, 2024 SUBJECTIVE: This is a 74-year-old male patient who was admitted with abdominal pain and nausea or vomiting. Patient recently had a robotic hiatal hernia repair and cholecystectomy on 05/29/2024. A CT of the abdomen and pelvis done on admission showed gastric distention with small bowel dilatation is seen with transitional point at the level of jejunum consistent with bowel obstruction. Patient was seen and examined in room 319. Patient is awake, alert and oriented x 3. Patient was ambulating in hallways and tolerating well. Patient has a clamped NG tube on the right nare. Patient is still having some abdominal discomfort with some distention but has not required any antiemetics this morning. We will obtain a KUB. We will continue with IV fluids. No reports of fever, temperature 98.2. Potassium level of 2.7 being replaced. Patient being given soapsuds enema for constipation. Will continue to monitor patient. PHYSICAL EXAM EYES: Anicteric. Pupils equal and reactive. HENT: No oral thrush seen, moist Oral mucosa. NG tube. NECK: Supple, no JVD or thyromegaly. LUNGS: Good air entry. No rales, no rhonchi. CARDIOVASCULAR: S1, S2 regular. No murmur heard. ABDOMEN: bowel sounds present, no organomegaly. Tenderness and distention. CENTRAL NERVOUS SYSTEM: Awake, alert, oriented x 3. SKIN: No rashes, no swelling. LYMPHATICS: No peripheral lymphadenopathy. MUSCULOSKELETAL: No joint swelling, erythema or tenderness. EXTREMITIES: No cyanosis or clubbing BACK: No deformity, no pressure ulcer. GENITOURINARY: No dysuria or hematuria. Vital Sign (Last 12 Hours) 06/08/24 06/08/24 06/08/24 08:10 11:16 16:41 Temp 98.2 98.2 98.1 Pulse 60 64 64 Resp 17 18 17 B/P (MAP) 121/67 107/62 146/76 Pulse Ox 97 95 99 O2 Delivery Room Air Room Air Room Air l Intake & Output (last 24hrs) 06/07/24 06/07/24 06/08/24 15:00 23:00 07:00 Output Total 1100 ml Balance -1100 ml LABS: Laboratory: Test 06/08/24 15:46 06/08/24 05:24 06/07/24 04:33 Range/Units Whole Blood Glucose 148 H 70-110 MG/DL Sodium Level 144 136-145 mmol/L Potassium Level 2.7 *L 3.5-5.1 mmol/L Chloride Level 103 101-111 mmol/L Carbon Dioxide Level 32 21-32 mmol/L Blood Urea Nitrogen 23 H 7-18 mg/dL Creatinine 1.0 0.5-1.3 mg/dL Glomerular Filtration Rate Calc 79 >90 mL/min Random Glucose 144 H 70-105 mg/dL Total Calcium 9.3 8.5-10.1 mg/dL Magnesium Level 2.50 H 1.80-2.40 mg/dL White Blood Count 7.1 4.8-10.8 K/uL Red Blood Count 4.74 4.50-6.20 MIL/uL Hemoglobin 15.6 14.0-18.0 g/dL Hematocrit 45.1 42-54 % Mean Corpuscular Volume 95.1 79-99 fL Mean Corpuscular Hemoglobin 32.9 27.0-33.0 pg Mean Corpuscular Hemoglobin Concent 34.6 32.0-36.0 g/dL Red Cell Distribution Width 12.5 11.0-15.5 % Platelet Count 236 130-400 K/uL Mean Platelet Volume 10.3 7.5-10.5 fL Nucleated Red Blood Cells 0.0 0.0-0.19 % ASSESSMENT: Abdominal pain. Small bowel obstruction. Nausea or vomiting. Dehydration. Diabetes mellitus. Constipation. Hypokalemia. PLAN: Currently with a clamped NG tube. Continue antiemetics. Continue pain management. Glucometer checks a.c./hs and cover with insulin per sliding scale protocol. We will monitor electrolytes and replace as needed. Patient will get soapsuds enema. Continue IV fluids. This case was reviewed and discussed with my supervising physician and the above assessment and plan was formulated and agreed upon. ATTESTATION BY PHYSICIAN I have seen and examined the patient. I reviewed the documentation, medical decision making, and treatment plan as noted by the mid-level provider above. I agree with the findings and plan of care. ABELARDO FRAGOSO MD, [facility] Jun 08, 2024 17:21
[2024-06-09] VITALS (8 sets, daily range): BP systolic 102–126; BP diastolic 65–73; PULSE 62–82; RESP 18–20; TEMP 97.5–98.8; O2SAT 95–98
[2024-06-09 05:10] LABS: BASOPHILS # (AUTO) 0.03 K/uL (0.00-0.20); BASOPHILS % (AUTO) 0.4 % (0.0-5.0); EOSINOPHILS # (AUTO) 0.16 K/uL (0.00-0.70); EOSINOPHILS % (AUTO) 2.2 % (0.0-8.0); HEMATOCRIT 43.1 % (42-54); IMMATURE GRANULOCYTE ABSOLUTE 0.04 K/uL (0-1); LYMPHOCYTES # (AUTO) 1.1 K/uL (1.0-4.8); LYMPHOCYTES % (AUTO) 15.6 % (21.0-51.0); MEAN CORPUSCULAR HEMOGLOBIN 32.7 pg (27.0-33.0); MEAN CORPUSCULAR HGB CONC 34.8 g/dL (32.0-36.0); MEAN CORPUSCULAR VOLUME 93.9 fL (79-99); MONOCYTES # (AUTO) 0.8 K/uL (0.1-1.0); MONOCYTES % (AUTO) 10.5 % (3.0-13.0); NEUTROPHILS # (AUTO) 5.2 K/uL (1.8-7.7); NEUTROPHILS % (AUTO) 70.8 % (40.0-77.0); PLATELET COUNT (AUTO) 231 K/uL (130-400); RED BLOOD CELL COUNT(AUTO) 4.59 MIL/uL (4.50-6.20); RED CELL DISTRIBUTION WIDTH 12.2 % (11.0-15.5); WHITE BLOOD COUNT (AUTO) 7.3 K/uL (4.8-10.8)
[2024-06-09 05:31] LABS: CREATININE 1.2 mg/dL (0.5-1.3); MAGNESIUM 2.4 mg/dL (1.80-2.40)
[2024-06-09 05:49] LABS: POTASSIUM 2.7 mmol/L (3.5-5.1)
--- NOTE | 2024-06-09 09:33 | HMCIMG ---
ABD 1VW REASON: SBO FINDINGS: Single image of the abdomen was obtained. NG tube remains in place. There are a few mildly prominent air-filled bowel loops. There is no evident transition zone. There are no significantly dilated loops. Bones and soft tissues appear unremarkable. IMPRESSION: 1. Nonspecific bowel gas pattern. 2. NG tube in place.
--- NOTE | 2024-06-09 11:30 | NUR ---
Blood glucose 159. No insulin coverage needed at this time.
--- NOTE | 2024-06-09 12:00 | NUR ---
Clamped nasogastric tube, gave patient ice chips. Re-evaluated patient in 1 hour; patient tolerated ice chips well. No complaints of nauseous or vomiting. Place low intermittent suction back on.
[2024-06-09] MEDS: PoTASSium chl 10% ELIXIR 20MEQ 20 MEQ/15 ML UDCUP ONE (13:53)
--- NOTE | 2024-06-09 15:13 | PN ---
INFECTIOUS DISEASE PROGRESS NOTE Date of Service: Jun 09, 2024 SUBJECTIVE: This is a 74-year-old male patient who was admitted with abdominal pain and nausea or vomiting. Patient recently had a robotic hiatal hernia repair and cholecystectomy on 05/29/2024. A CT of the abdomen and pelvis done on admission showed gastric distention with small bowel dilatation is seen with transitional point at the level of jejunum consistent with bowel obstruction. Patient was seen and examined in room 319. Patient is awake, alert and oriented x 3. Per report patient had a 1000 mL output on the NG tube last night. NG tube has been clamped for an hour per surgeon recommendations and we will monitor for any nausea or vomiting. We will also give potassium elixir via NG tube besides the IV potassium due to potassium level of 2.7. Will continue to monitor patient. PHYSICAL EXAM EYES: Anicteric. Pupils equal and reactive. HENT: No oral thrush seen, moist Oral mucosa. NG tube. NECK: Supple, no JVD or thyromegaly. LUNGS: Good air entry. No rales, no rhonchi. CARDIOVASCULAR: S1, S2 regular. No murmur heard. ABDOMEN: bowel sounds present, no organomegaly. Tenderness and distention. CENTRAL NERVOUS SYSTEM: Awake, alert, oriented x 3. SKIN: No rashes, no swelling. LYMPHATICS: No peripheral lymphadenopathy. MUSCULOSKELETAL: No joint swelling, erythema or tenderness. EXTREMITIES: No cyanosis or clubbing BACK: No deformity, no pressure ulcer. GENITOURINARY: No dysuria or hematuria. Vital Sign (Last 12 Hours) 06/09/24 06/09/24 06/09/24 04:00 08:18 11:27 Temp 98.4 97.9 98.2 Pulse 72 71 77 Resp 20 18 18 B/P (MAP) 126/73 110/66 114/66 Pulse Ox 96 95 99 O2 Delivery Room Air Room Air Room Air Intake & Output (last 24hrs) 06/08/24 06/08/24 06/09/24 15:00 23:00 07:00 Intake Total 1000.0 ml 0 ml Output Total 1100 ml Balance 1000.0 ml -1100 ml LABS: Laboratory: Test 06/09/24 11:10 06/09/24 04:43 Range/Units Whole Blood Glucose 159 H 70-110 MG/DL White Blood Count 7.3 4.8-10.8 K/uL Red Blood Count 4.59 4.50-6.20 MIL/uL Hemoglobin 15.0 14.0-18.0 g/dL Hematocrit 43.1 42-54 % Mean Corpuscular Volume 93.9 79-99 fL Mean Corpuscular Hemoglobin 32.7 27.0-33.0 pg Mean Corpuscular Hemoglobin Concent 34.8 32.0-36.0 g/dL Red Cell Distribution Width 12.2 11.0-15.5 % Platelet Count 231 130-400 K/uL Mean Platelet Volume 10.7 H 7.5-10.5 fL Immature Granulocyte % (Auto) 0.5 0-1 % Neutrophils (%) (Auto) 70.8 40.0-77.0 % Lymphocytes (%) (Auto) 15.6 L 21.0-51.0 % Monocytes (%) (Auto) 10.5 3.0-13.0 % Eosinophils (%) (Auto) 2.2 0.0-8.0 % Basophils (%) (Auto) 0.4 0.0-5.0 % Neutrophils # (Auto) 5.2 1.8-7.7 K/uL Lymphocytes # (Auto) 1.1 1.0-4.8 K/uL Monocytes # (Auto) 0.8 0.1-1.0 K/uL Eosinophils # (Auto) 0.16 0.00-0.70 K/uL Basophils # (Auto) 0.03 0.00-0.20 K/uL Absolute Immature Granulocyte (auto 0.04 0-1 K/uL Nucleated Red Blood Cells 0.0 0.0-0.19 % Sodium Level 140 136-145 mmol/L Potassium Level 2.7 *L 3.5-5.1 mmol/L Chloride Level 98 L 101-111 mmol/L Carbon Dioxide Level 33 H 21-32 mmol/L Blood Urea Nitrogen 22 H 7-18 mg/dL Creatinine 1.2 0.5-1.3 mg/dL Glomerular Filtration Rate Calc 64 >90 mL/min Random Glucose 134 H 70-105 mg/dL Total Calcium 8.8 8.5-10.1 mg/dL Magnesium Level 2.40 1.80-2.40 mg/dL ASSESSMENT: Abdominal pain. Small bowel obstruction. Nausea or vomiting. Dehydration. Diabetes mellitus. Constipation. Hypokalemia. PLAN: Continue antiemetics. Continue pain management. Glucometer checks a.c./hs and cover with insulin per sliding scale protocol. We will monitor electrolytes and replace as needed. Continue IV fluids. NG tube to low intermittent suction. This case was reviewed and discussed with my supervising physician and the above assessment and plan was formulated and agreed upon. ATTESTATION BY PHYSICIAN I have seen and examined the patient. I reviewed the documentation, medical decision making, and treatment plan as noted by the mid-level provider above. I agree with the findings and plan of care. ABELARDO FRAGOSO MD, [facility] Jun 09, 2024 15:13
--- NOTE | 2024-06-09 16:30 | NUR ---
Blood glucose 137. No insulin coverage needed at this time
[2024-06-10] VITALS (28 sets, daily range): BP systolic 102–173; BP diastolic 58–83; PULSE 68–87; RESP 14–20; TEMP 97.5–98.8; O2SAT 98–100
[2024-06-10 05:32] LABS: BASOPHILS # (AUTO) 0.03 K/uL (0.00-0.20); BASOPHILS % (AUTO) 0.3 % (0.0-5.0); EOSINOPHILS # (AUTO) 0.17 K/uL (0.00-0.70); EOSINOPHILS % (AUTO) 1.9 % (0.0-8.0); HEMATOCRIT 48.4 % (42-54); IMMATURE GRANULOCYTE ABSOLUTE 0.03 K/uL (0-1); LYMPHOCYTES # (AUTO) 1.3 K/uL (1.0-4.8); LYMPHOCYTES % (AUTO) 14.6 % (21.0-51.0); MEAN CORPUSCULAR HEMOGLOBIN 32.7 pg (27.0-33.0); MEAN CORPUSCULAR HGB CONC 34.5 g/dL (32.0-36.0); MEAN CORPUSCULAR VOLUME 94.9 fL (79-99); MONOCYTES # (AUTO) 0.8 K/uL (0.1-1.0); MONOCYTES % (AUTO) 9.2 % (3.0-13.0); NEUTROPHILS # (AUTO) 6.5 K/uL (1.8-7.7); NEUTROPHILS % (AUTO) 73.7 % (40.0-77.0); PLATELET COUNT (AUTO) 252 K/uL (130-400); WHITE BLOOD COUNT (AUTO) 8.8 K/uL (4.8-10.8)
[2024-06-10 05:41] LABS: CREATININE 1.3 mg/dL (0.5-1.3); MAGNESIUM 2.7 mg/dL (1.80-2.40)
[2024-06-10 05:53] LABS: POTASSIUM 2.9 mmol/L (3.5-5.1)
--- NOTE | 2024-06-10 07:10 | NUR ---
AYE HADDAD NUR[employer]OL TEACHER CALLED AT THIS TIME ASKING FOR UPDATES ON THIS PATIENT. I INFORMED HIM THAT THE PATIENT DID PUT OUT 2800ML FROM THE NGT TUBE THROUGHOUT THE NIGHT AND HE DID EXPERIENCE BLOATING AND ABDOMINAL DISTENTION AFTER CONSUMING ICE CHIPS WHILE NGT WAS CLAMPED. I LET HIM KNOW VITALS WERE STEADY AND WITHIN NORMAL LIMITS. MR GRIFFITHS SAID HE WILL UPDATE THE PRIMARY AND THE SURGEON ON THIS CASE AND SEE WHAT THEY DECIDE TO DO.
--- NOTE | 2024-06-10 08:00 | NUR ---
STARTED COVERING POTASSIUM VIA IV DUE T PATIENT BEING NPO.
--- NOTE | 2024-06-10 09:30 | NUR ---
NOTIFY FLYING SHEAR OPERATOR MR. FRIED, FLYING SHEAR OPERATOR MR. RUBALCAVA AND NURSE DIRECTOR MRS. MARKS ABOUT PATIENT AND FAMILY MEMBERS VERBALIZING DISSATISFACTION FROM GI TEAM. NOTIFY THEM THAT DR. VEGA HAS NOT COME TO SEE PATIENT IN PERSON YET SINCE 06/06/2024.
--- NOTE | 2024-06-10 11:00 | NUR ---
NOTIFY MR. BOO NGUYỄN FOR DR. VEGA RESULTS OF UPPER GI SERIES VIA TELEPHONE.
--- NOTE | 2024-06-10 11:30 | NUR ---
OBTAINED CONCENT FOR : DIAGNOSTIC LAPAROSCOPY WITH EGD AND POSSIBLE ROBOTIC INTERVENTION WITH DR. VEGA.
--- NOTE | 2024-06-10 11:30 | NUR ---
Blood glucose 143. No insulin coverage needed at this time.
[2024-06-10] MEDS ORDERED: DIATR MEGLU/DIATRIZOATE SODIUM 30 ML BOTTLE ONE (12:01)
--- NOTE | 2024-06-10 12:19 | HMCIMG ---
UPPER GI W/SMALL BOWEL REASON: Small bowel obstruction COMPARISON: None TECHNIQUE: Gastrografin Upper GI was performed with fluoroscopic observation. Multiple spot views were obtained. Fluoroscopy time was 1.1 minutes. Serial KUB images were then performed for small bowel evaluation. FINDINGS: There is normal esophageal peristalsis. There is an NG tube in place. There are surgical changes consistent with hiatal hernia repair, there is no evidence of leak or obstruction. Stomach appears unremarkable. The duodenum and the proximal jejunum are moderately distended. Remaining jejunum is normal caliber. The distention of the proximal small bowel liver appears intermittent, partially relieved on several of the images and recurrent on subsequent images. Small bowel loops distal to this appear normal. The Gastrografin reaches the colon by the 30 minute image. IMPRESSION: 1. Moderately distended duodenal C-loop and single proximal small bowel loop consistent with a partial obstruction. 2. More distal jejunal loops appear normal as do the ileal loop, remainder of the small bowel appears normal. 3. Findings consistent with hiatal hernia repair, there is no evidence of leak or obstruction, remainder of exam is unremarkable.
--- NOTE | 2024-06-10 15:00 | NUR ---
PATIENT LEFT FOR PROCEDURE WITH DR. VEGA.
[2024-06-10] MEDS ORDERED: LIDOCAINE PF 100MG/5ML (2%) SYRINGE 5ML ONE (15:34)
[2024-06-10] MEDS ORDERED: ketOROlac 30MG VIAL (30MG/ML) ONE (15:34)
[2024-06-10] MEDS ORDERED: dexaMETHasone SOD PHOSPHATE 4 MG/ML 1ML VIAL ONE (15:34)
[2024-06-10] MEDS ORDERED: ondanSETRON 4MG INJ ONE (15:35)
[2024-06-10] MEDS ORDERED: proPOFol 10 MG/ML 20ML VIAL IV ONE (15:35)
[2024-06-10] MEDS ORDERED: GLYCOPYRROLATE 0.2 MG/ML 5 ML VIAL ONE (15:35)
[2024-06-10] MEDS ORDERED: MIDAZOLAM HCL 1 MG/ML 2ML VIAL ONE (15:36)
[2024-06-10] MEDS ORDERED: NEOSTIGMINE METHYLSULFATE 1MG/ML IV ONE (15:36)
[2024-06-10] MEDS ORDERED: rocuRONium bROMide 10MG/1ML 5ML VL ONE ×2 (15:36→16:46)
[2024-06-10] MEDS ORDERED: SUCCINYLCHOLINE CHLORIDE 20 MG/ML 10 ML VIAL ONE (15:36)
[2024-06-10] MEDS ORDERED: FENTanyl CITRate PF 50 MCG/1 ML 2ML VIAL ONE ×2 (15:36→16:46)
[2024-06-10] MEDS ORDERED: LIDOCAINE 1%-EPI 1:100,000 20 ML VIAL ONE (16:17)
[2024-06-10] MEDS ORDERED: BUPIvacaine/PF 0.25% 30ML VIAL IJ ONE (16:17)
[2024-06-10] MEDS ORDERED: ALBUMIN (HUMAN) 5% 250 ML IV ONE (16:17)
[2024-06-10] MEDS: ceFAZolin SODIUM 2 GM VIAL IVPB ONE (16:20)
[2024-06-10] MEDS ORDERED: BUPIvacaine/PF 0.5% 30ML VIAL ONE (16:20)
[2024-06-10] MEDS ORDERED: ceFAZolin SODIUM 1 GM VIAL ONE (16:25)
[2024-06-10 17:13] LABS: CREATININE 1.7 mg/dL (0.5-1.3); POTASSIUM 3.1 mmol/L (3.5-5.1)
--- NOTE | 2024-06-10 18:23 | OP ---
Operative Note: DATE OF PROCEDURE: 06/10/24 SURGEON: MOSES VEGA MD MEDICAL ASSISTANT PER DIEM: [facility] [place] operative nursing and technicians ANESTHESIA: General and Local ANESTHESIOLOGIST/DIRECTOR OF VENDOR MANAGEMENT: [facility] [place] anesthesia team PREOPERATIVE DIAGNOSIS: Partial small bowel obstruction POSTOPERATIVE DIAGNOSIS: As above. Loop gastrojejunostomy twisted about the anastomosis causing afferent loop obstruction SYNOPSIS: Reduction of internal hernia (untwisting of bowel) PROCEDURE: 1. Diagnostic laparoscopy, robotic assisted 2. Lysis of adhesions and reduction of "internal hernia" (twisted loop around anastomosis) 3. Creation of small-bowel anastomosis with primary closure, [place] loop 4. EGD ESTIMATED BLOOD LOSS: Minimal, less than 20 cc INDICATIONS: As above DESCRIPTION OF PROCEDURE: After standard precautions and preparations were undertaken diversity non optical trocar we used trend to the abdominal cavity. All other history were placed under direct vision. The robotic system was docked in the standard fashion. We examined the small bowel and found what appeared to be one dilated closed loop of fluid-filled small bowel in the area of the gastrojejunal anastomosis. Since it was difficult to discern which direction to unwrap or on twist the loop gastrojejunostomy about his access we identified the terminal ileum and began pulling the bowel towards the right lower quadrant marching from distal back to proximal. There we were able to discern that the loop had flipped 180 about its axis and we are able to return the bilio-pancreatic afferent portion of the limb to the left upper quadrant to allow the bowel to lay out properly. Some stabilizing stitches were placed between the small intestine in the nearby omentum. And are negative lupus created approximately 10 to 15 cm from the gastrojejunostomy to allow for the flow of bilio-pancreatic fluids without having to reach the gastrojejunal anastomosis. The defect left behind by the stapled anastomosis was sutured closed. All instrument counts were correct including needles and sponges prior to ending the case MOSES VEGA MD Jun 10, 2024 18:23
[2024-06-10] MEDS: FAMOTIDINE 20MG VIAL IV SCH (20:50)
[2024-06-10] MEDS: ENOXAPARIN SODIUM 30 MG/0.3 ML SQ SCH (20:51)
--- NOTE | 2024-06-10 21:37 | PN ---
DATE OF SERVICE: 06/10/2024. INFECTIOUS DISEASE FOLLOWUP NOTE SUBJECTIVE: The patient is seen and examined at bedside today. No fever, no chills. The patient remained with persistent small bowel obstruction. The patient is planned for possible laparoscopic exploration today. No cough, no hemoptysis or pleuritic pain. The patient and family was updated at the bedside. PHYSICAL EXAMINATION: VITAL SIGNS: Temperature 97.9. EYES: No icterus. Pupils equal and reactive. HENT: Dry oral mucosa. NG tube in place. NECK: Supple, no JVD or thyromegaly. LUNGS: Good air entry. No rales, no rhonchi. CARDIOVASCULAR: S1, S2 regular. No murmur heard. ABDOMEN: Obese, soft. Bowel sounds present. CENTRAL NERVOUS SYSTEM: Awake, alert, and oriented x 3. No focal deficits. SKIN: No rashes, no itchiness. LYMPHATIC: No peripheral lymphadenopathy. BACK: No deformity, no pressure ulcer. MUSCULOSKELETAL: No joint swelling, erythema or tenderness. ASSESSMENT: A 74-year-old male admitted with nausea and vomiting and abdominal pain. CURRENT PROBLEMS: Include: * Small-bowel obstruction. * Abdominal pain. * Dehydration. * Nausea and vomiting. * Hypertension. * Diabetes mellitus. PLAN: * Continue NG tube decompression. * Continue IV fluid. * Continue antiemetic. * Continue pain management. * Monitor electrolytes. * Monitor blood glucose. * Continue antihypertensive. TID: [id number] RECEIPT: [id number]
[2024-06-11] VITALS (7 sets, daily range): BP systolic 108–121; BP diastolic 56–62; PULSE 65–74; RESP 16–20; TEMP 98.2–98.7; O2SAT 100
[2024-06-11 05:35] LABS: CREATININE 1.4 mg/dL (0.5-1.3); MAGNESIUM 2.4 mg/dL (1.80-2.40); POTASSIUM 3.4 mmol/L (3.5-5.1)
--- NOTE | 2024-06-11 07:15 | NUR ---
PATIENT IS ALERT, ORIENTED IN PERSON, TIME AND PLACE. NO SIGNS OF RESPIRATORY DISTRESS, ABDOMINAL SOUNDS PRESENT AND STRONG IN ALL FOUR ABDOMINAL QUADRANTS. ABDOMEN TENDER, DISTENDED BUT SOFT. DORSALIS PEDIS PULSE PRESENT ON BOTH FEET. PIV PATENT. DISCUSSED PLAN OF CARE, PAIN MANAGEMENT AND A DIET RESTRICTIONS. PATIENT AND FAMILY MEMBERS VERBALIZED UNDERSTANDING.
--- NOTE | 2024-06-11 07:30 | NUR ---
placed a abdominal binder for patient pain management and comfort.
--- NOTE | 2024-06-11 09:00 | NUR ---
POTASSIUM AT 3.4. COVERED POTASSIUM VIA IV DUE TO PATIENT COMPLAINING OF ABDOMINAL PAIN.
--- NOTE | 2024-06-11 10:54 | PN ---
GENERAL SURGERY PROGRESS NOTE Date/Time Patient Seen: 06-11-24 - am Problem List: partial SBO and baseline Gastroparesis Interval History: POD #1 s/p take back to OR for lysis of adhesions and creation of omega loop to relieve his afferent loop/limb partial obstruction. Nurse states pt is doing well with complaints of bloating, but otherwise no issues. Bowel sounds are present diffusely in abdomen. VS stable. Current Medications Medications (Trade) Dose Ordered Sig/Bridgette Route Start Time Stop Time Status Last Admin Dose Admin Cefepime HCl (MAXipime 1 GM vial) 1 gm Q8H IVPB 06/05/24 06:30 06/06/24 11:22 DC 06/06/24 05:30 1 GM Dextrose/Sodium Chloride 1,000 ml @ 75 mls/hr [id number] IV 06/05/24 10:00 07/05/24 09:59 06/10/24 23:37 75 MLS/HR Enoxaparin Sodium (Lovenox) 30 mg DAILY SQ 06/06/24 09:00 07/06/24 08:59 06/11/24 09:45 30 MG Enoxaparin Sodium (Lovenox) 30 mg ONCE SQ 06/10/24 21:00 06/10/24 23:59 DC 06/10/24 20:51 30 MG Famotidine (Pepcid 20mg Vial) 20 mg BID IV 06/10/24 21:00 07/10/24 20:59 06/11/24 09:41 20 MG Insulin Human Lispro (HumaLOG LISpro 100 UNIT/ML 3ML) INSULIN SLIDING SCAL... ACHS SQ 06/05/24 11:30 07/05/24 11:29 06/07/24 17:00 4 UNIT Physical Examination: GENERAL: [No acute distress.] HEAD: [Normal with no signs of head trauma.] EYES: [PERRLA, EOMI, conjunctiva and sclera normal.] ENT: [Hearing grossly intact, normal oropharynx.] NECK: [Supple without JVD. There is no tenderness, lymphadenopathy, or masses. No thyromegaly. Normal carotid upstrokes without bruits.] LUNGS: [Clear breath sounds bilaterally. There are right basilar rales one third of the way up the chest. No wheezes, or rhonchi.] HEART: [Normal rate and rhythm. Normal S1 and S2 without mumurs, gallop or rub.] VASC: [Peripheral pulses +2 bilaterally.] ABD: [Bowel sounds normal, soft, mild distention, appropriately tender, no masses, no organomegaly. No audible bruits.] : [Not examined] LYMPH: [No lymphadenopathy noted.] EXT: [No clubbing, cyanosis or edema.] SKIN: [No rashes or lesions noted.] NEURO: [Awake, alert, and oriented x3. No focal sensory or strength deficits noted.] Vital Signs (last 8hr) Date Time Temp Pulse Resp B/P (MAP) Pulse Ox O2 Delivery O2 Flow Rate FiO2 06/11/24 08:00 98.4 67 18 114/60 100 Room Air 21 06/11/24 04:00 98.2 74 16 121/57 93 Room Air 21 Laboratory: [ ] Hematology Labs: Test 06/10/24 05:10 Range/Units White Blood Count 8.8 4.8-10.8 K/uL Red Blood Count 5.10 4.50-6.20 MIL/uL Hemoglobin 16.7 14.0-18.0 g/dL Hematocrit 48.4 42-54 % Mean Corpuscular Volume 94.9 79-99 fL Mean Corpuscular Hemoglobin 32.7 27.0-33.0 pg Mean Corpuscular Hemoglobin Concent 34.5 32.0-36.0 g/dL Red Cell Distribution Width 12.0 11.0-15.5 % Platelet Count 252 130-400 K/uL Mean Platelet Volume 10.4 7.5-10.5 fL Immature Granulocyte % (Auto) 0.3 0-1 % Neutrophils (%) (Auto) 73.7 40.0-77.0 % Lymphocytes (%) (Auto) 14.6 L 21.0-51.0 % Monocytes (%) (Auto) 9.2 3.0-13.0 % Eosinophils (%) (Auto) 1.9 0.0-8.0 % Basophils (%) (Auto) 0.3 0.0-5.0 % Neutrophils # (Auto) 6.5 1.8-7.7 K/uL Lymphocytes # (Auto) 1.3 1.0-4.8 K/uL Monocytes # (Auto) 0.8 0.1-1.0 K/uL Eosinophils # (Auto) 0.17 0.00-0.70 K/uL Basophils # (Auto) 0.03 0.00-0.20 K/uL Absolute Immature Granulocyte (auto 0.03 0-1 K/uL Nucleated Red Blood Cells 0.0 0.0-0.19 % Chemistry Labs: Test 06/11/24 05:42 06/11/24 04:53 Range/Units Whole Blood Glucose 131 H 70-110 MG/DL Sodium Level 141 136-145 mmol/L Potassium Level 3.4 L 3.5-5.1 mmol/L Chloride Level 102 101-111 mmol/L Carbon Dioxide Level 35 H 21-32 mmol/L Blood Urea Nitrogen 29 H 7-18 mg/dL Creatinine 1.4 H 0.5-1.3 mg/dL Glomerular Filtration Rate Calc 53 >90 mL/min Random Glucose 147 H 70-105 mg/dL Total Calcium 9.1 8.5-10.1 mg/dL Magnesium Level 2.40 1.80-2.40 mg/dL Diagnostics / Radiology: No new results at this time. Impression and Plan: 74 man we recent surgery for gastroparesis, now with 2nd surgery to address partial afferent loop obstruction secondary to abnormal adhesions and twisting about the anastomosis. The anatomy was corrected with adhesiolysis and an omega loop was completed to allow for bypass passage of biliopancreatic effluent without obstruction. Pt should continue CLD, ambulation, abdominal binder. We will start reglan to assist with GI motility. All medical care as directed by primary hospitalist team, but surgically he appears to be recovering well. We appreciate the input of nutrition/dye tub operator teams to maximize the patient's protein and nutritional uptake as he recovers from a 2nd surgery. No further surgical intervention planned at this time. MOSES VEGA MD Jun 11, 2024 10:54
--- NOTE | 2024-06-11 11:30 | NUR ---
BLOOD GLUCOSE AT 220. COVERED WITH 6 UNITS OF HUMALOG SUBCUTANEOUS, FOLLOWING INSULIN SCALE.
--- NOTE | 2024-06-11 15:00 | NUR ---
DISCUSSED PLAN OF CARE, PAIN MANAGEMENT, MEDICATIONS AND CURRENT DIET RESTRICTIONS. PATIENT VERBALIZED UNDERSTANDING.
--- NOTE | 2024-06-11 15:45 | NUR ---
CALLED DR. VEGA, GI; NOTIFY HIM PATIENT WAS IN EXCRUCIATING PAIN IN ABDOMEN AREA. (VIEW ORDERS).
[2024-06-11] MEDS: metoCLOPRAmide 10 MG/2 ML VIAL ONE (15:47)
[2024-06-11] MEDS: ketOROlac 30MG VIAL (30MG/ML) ONE (15:57)
[2024-06-11] MEDS: hydroMORPHone 0.5 MG SYG (0.5MG/0.5ML) ONE (15:58)
[2024-06-11] MEDS: hydroMORPHone 0.5 MG SYG (0.5MG/0.5ML) IVP SCH (16:14)
[2024-06-11] MEDS: ketOROlac 30MG VIAL (30MG/ML) IVP SCH (16:14)
--- NOTE | 2024-06-11 16:30 | NUR ---
BLOOD GLUCOSE AT 99. NO INSULIN COVERAGE NEEDED AT THIS TIME
--- NOTE | 2024-06-11 16:55 | PN ---
INFECTIOUS DISEASE FOLLOWUP NOTE DATE OF SERVICE: 06/11/2024 SUBJECTIVE: The patient is seen and examined at bedside today. The patient has no fever, no chills. No vomiting. No bleeding tendency. The patient underwent surgery with lysis of adhesions and repair of internal hernia. No joint swelling, no redness. Denies rashes or itchiness. The patient has been started on clear liquid diet, which he is tolerating. PHYSICAL EXAMINATION: VITAL SIGNS: Temperature 97.5. EYES: No icterus. Pupils equal and reactive. HENT: No oral thrush seen. Moist oral mucosa. NECK: Supple, no JVD or thyromegaly. LUNGS: Good air entry. No rales, no rhonchi. CARDIOVASCULAR: S1, S2 regular. No murmur heard. ABDOMEN: Full, soft. Bowel sound is present. CENTRAL NERVOUS SYSTEM: Awake, alert, oriented x 3. No focal deficits. SKIN: No rashes, no itchiness. LYMPHATIC: No peripheral lymphadenopathy. BACK: No deformity, no pressure ulcer. HEMATOLOGIC: No bleeding or petechial lesions seen. MUSCULOSKELETAL: No joint swelling, erythema or tenderness. VASCULAR: No ischemia or gangrene of extremities. ASSESSMENT: A 74-year-old male with multiple problems which include: * Intestinal obstruction. * Internal hernia, status post surgery. * Dehydration. * Hypertension. * Diabetes mellitus. PLAN: * Continue nutritional support. * Monitor electrolytes. * Continue antidiabetic. * Continue pain management. * Continue antiemetics. * Diet to be advanced as tolerated as recommended by Surgery. TID: [id number] RECEIPT: [id number]
--- NOTE | 2024-06-11 18:00 | NUR ---
PATIENT TOLERATED DIET WELL.
[2024-06-11] MEDS: ketOROlac 15MG/ML VIAL (15MG/ML) IV SCH (18:30)
[2024-06-11] MEDS: metoCLOPRAmide 10 MG/2 ML VIAL IVP SCH (20:37)
[2024-06-12] VITALS (7 sets, daily range): BP systolic 106–123; BP diastolic 60–80; PULSE 64–74; RESP 18; TEMP 98–98.7; O2SAT 95–100
[2024-06-12 05:12] LABS: HEMATOCRIT 36.4 % (42-54); MEAN CORPUSCULAR HEMOGLOBIN 33.2 pg (27.0-33.0); MEAN CORPUSCULAR HGB CONC 34.1 g/dL (32.0-36.0); MEAN CORPUSCULAR VOLUME 97.6 fL (79-99); RED BLOOD CELL COUNT(AUTO) 3.73 MIL/uL (4.50-6.20); RED CELL DISTRIBUTION WIDTH 12.4 % (11.0-15.5); WHITE BLOOD COUNT (AUTO) 9.8 K/uL (4.8-10.8)
[2024-06-12 05:36] LABS: CREATININE 1.2 mg/dL (0.5-1.3); MAGNESIUM 2.2 mg/dL (1.80-2.40)
[2024-06-12 05:39] LABS: POTASSIUM 2.8 mmol/L (3.5-5.1)
[2024-06-12] MEDS: PoTASSium chloRIDE 20MEQ ER 20 MEQ ERTAB PO ONE (06:27)
--- NOTE | 2024-06-12 08:00 | NUR ---
DISCUSSED PLAN OF CARE, PAIN MANAGEMENT, MEDICATIONS AND CURRENT DIET RESTRICTIONS. PATIENT VERBALIZED UNDERSTANDING.
--- NOTE | 2024-06-12 09:00 | NUR ---
POTASSIUM AT 2.8. COVERED POTASSIUM VIA IV AND ORAL; FOLLOWING POTASSIUM PROTOCOLS. PATIENT TOLERATING IT WELL.
[2024-06-12] MEDS ORDERED: PoTASSium chloRIDE 20MEQ ER 20 MEQ ERTAB PO PRN (09:30)
--- NOTE | 2024-06-12 11:16 | PN ---
GENERAL SURGERY PROGRESS NOTE Date/Time Patient Seen: 06-12-24 am Problem List: partial SBO and baseline Gastroparesis Interval History: POD #2 s/p take back to OR for lysis of adhesions and creation of omega loop to relieve his afferent loop/limb partial obstruction. Nurse states pt is doing well with complaints of bloating, but otherwise no issues. Bowel sounds are present diffusely in abdomen. VS stable. He is tolerating PO intake of CLD, but continues to have intermittent bouts of bloating. Current Medications Medications (Trade) Dose Ordered Sig/Bridgette Route Start Time Stop Time Status Last Admin Dose Admin Cefepime HCl (MAXipime 1 GM vial) 1 gm Q8H IVPB 06/05/24 06:30 06/06/24 11:22 DC 06/06/24 05:30 1 GM Dextrose/Sodium Chloride 1,000 ml @ 75 mls/hr [id number] IV 06/05/24 10:00 07/05/24 09:59 06/12/24 02:11 75 MLS/HR Enoxaparin Sodium (Lovenox) 30 mg DAILY SQ 06/06/24 09:00 07/06/24 08:59 06/12/24 09:07 30 MG Enoxaparin Sodium (Lovenox) 30 mg ONCE SQ 06/10/24 21:00 06/10/24 23:59 DC 06/10/24 20:51 30 MG Famotidine (Pepcid 20mg Vial) 20 mg BID IV 06/10/24 21:00 07/10/24 20:59 06/12/24 09:06 20 MG Hydromorphone HCl (DiLAUDid 0.5MG INJ) 0.5 mg ONCE IVP 06/11/24 16:00 06/11/24 20:00 DC 06/11/24 16:14 0.5 MG Insulin Human Lispro (HumaLOG LISpro 100 UNIT/ML 3ML) INSULIN SLIDING SCAL... ACHS SQ 06/05/24 11:30 07/05/24 11:29 06/11/24 13:02 6 UNIT Ketorolac Tromethamine (toRADol) 15 mg Q6H6 IV 06/11/24 18:00 06/16/24 17:59 06/12/24 06:26 15 MG Ketorolac Tromethamine (toRADol) 30 mg ONCE IVP 06/11/24 16:00 06/11/24 20:00 DC 06/11/24 16:14 30 MG Metoclopramide HCl (regLAN 10MG IV) 10 mg BID IVP 06/11/24 21:00 07/11/24 20:59 06/12/24 09:06 10 MG Physical Examination: GENERAL: [No acute distress.] HEAD: [Normal with no signs of head trauma.] EYES: [PERRLA, EOMI, conjunctiva and sclera normal.] ENT: [Hearing grossly intact, normal oropharynx.] NECK: [Supple without JVD. There is no tenderness, lymphadenopathy, or masses. No thyromegaly. Normal carotid upstrokes without bruits.] LUNGS: [Clear breath sounds bilaterally. There are right basilar rales one third of the way up the chest. No wheezes, or rhonchi.] HEART: [Normal rate and rhythm. Normal S1 and S2 without mumurs, gallop or rub.] VASC: [Peripheral pulses +2 bilaterally.] ABD: [Bowel sounds normal, soft, appropriately tender, intermittent bloating, no masses, no organomegaly. No audible bruits.] : [Not examined] LYMPH: [No lymphadenopathy noted.] EXT: [No clubbing, cyanosis or edema.] SKIN: [No rashes or lesions noted.] NEURO: [Awake, alert, and oriented x3. No focal sensory or strength deficits noted.] Vital Signs (last 8hr) Date Time Temp Pulse Resp B/P (MAP) Pulse Ox O2 Delivery O2 Flow Rate FiO2 06/12/24 08:00 98.4 66 18 123/65 95 Room Air 06/12/24 07:58 95 Room Air* 0 06/12/24 03:57 98.6 74 18 110/62 94 Room Air Laboratory: [ ] Hematology Labs: Test 06/12/24 04:55 Range/Units White Blood Count 9.8 4.8-10.8 K/uL Red Blood Count 3.73 L 4.50-6.20 MIL/uL Hemoglobin 12.4 #L 14.0-18.0 g/dL Hematocrit 36.4 #L 42-54 % Mean Corpuscular Volume 97.6 79-99 fL Mean Corpuscular Hemoglobin 33.2 H 27.0-33.0 pg Mean Corpuscular Hemoglobin Concent 34.1 32.0-36.0 g/dL Red Cell Distribution Width 12.4 11.0-15.5 % Platelet Count 196 130-400 K/uL Mean Platelet Volume 10.8 H 7.5-10.5 fL Nucleated Red Blood Cells 0.0 0.0-0.19 % Chemistry Labs: Test 06/12/24 05:20 06/12/24 04:55 Range/Units Whole Blood Glucose 96 70-110 MG/DL Sodium Level 140 136-145 mmol/L Potassium Level 2.8 *L 3.5-5.1 mmol/L Chloride Level 101 101-111 mmol/L Carbon Dioxide Level 33 H 21-32 mmol/L Blood Urea Nitrogen 23 H 7-18 mg/dL Creatinine 1.2 0.5-1.3 mg/dL Glomerular Filtration Rate Calc 64 >90 mL/min Random Glucose 98 70-105 mg/dL Total Calcium 8.1 L 8.5-10.1 mg/dL Magnesium Level 2.20 1.80-2.40 mg/dL Diagnostics / Radiology: No new imaging results Impression and Plan: 74 man we recent surgery for gastroparesis, now with 2nd surgery to address partial afferent loop obstruction secondary to abnormal adhesions and twisting about the anastomosis. The anatomy was corrected with adhesiolysis and an omega loop was completed to allow for bypass passage of biliopancreatic effluent without obstruction. Pt should continue ambulation, abdominal binder. Cont Reglan to assist with GI motility. -Add Simethicone QID -Advance to FULL LIQUID DIET -Cont to replete potassium and electrolytes per protocol All medical care as directed by primary hospitalist team, but surgically he appears to be recovering well. We appreciate the excellent nursing care, hospitalist team, and input of nutrition/drop worker teams to maximize the patient's protein and nutritional uptake as he recovers from a 2nd surgery. No further surgical intervention planned at this time. MOSES VEGA MD Jun 12, 2024 11:16
--- NOTE | 2024-06-12 11:30 | NUR ---
BLOOD GLUCOSE AT 129. NO INSULIN COVERAGE NEEDED AT THIS TIME
[2024-06-12] MEDS: SIMETHICONE 80 MG TAB.CHEW PO SCH (12:04)
[2024-06-12] MEDS: PoTASSium chl 10% ELIXIR 20MEQ 20 MEQ/15 ML UDCUP PO PRN (12:07)
--- NOTE | 2024-06-12 14:57 | PN ---
INFECTIOUS DISEASE PROGRESS NOTE Date of Service: Jun 12, 2024 SUBJECTIVE: This is a 74-year-old male patient who was admitted with abdominal pain and nausea or vomiting. Patient recently had a robotic hiatal hernia repair and cholecystectomy on 05/29/2024. A CT of the abdomen and pelvis done on admission showed gastric distention with small bowel dilatation is seen with transitional point at the level of jejunum consistent with bowel obstruction. Patient is status post laparoscopy with lysis of adhesions and small-bowel anastomosis on 06/10/2024. The abdominal surgical incisions are clean and dry. Abdomen is soft. Patient wearing an abdominal binder. Diet has been advanced to full liquid diet and tolerating well. Patient is awake, alert and oriented x 3. Patient is up ambulating well in hallways. Low Potassium level being replaced. Will continue to monitor patient. PHYSICAL EXAM EYES: Anicteric. Pupils equal and reactive. HENT: No oral thrush seen, moist Oral mucosa. NECK: Supple, no JVD or thyromegaly. LUNGS: Good air entry. No rales, no rhonchi. CARDIOVASCULAR: S1, S2 regular. No murmur heard. ABDOMEN: bowel sounds present, no organomegaly. Abdominal surgical incisions.. CENTRAL NERVOUS SYSTEM: Awake, alert, oriented x 3. SKIN: No rashes, no swelling. LYMPHATICS: No peripheral lymphadenopathy. MUSCULOSKELETAL: No joint swelling, erythema or tenderness. EXTREMITIES: No cyanosis or clubbing. BACK: No deformity, no pressure ulcer. GENITOURINARY: No dysuria or hematuria. Vital Sign (Last 12 Hours) 06/12/24 06/12/24 06/12/24 06/12/24 03:57 07:58 08:00 12:00 Temp 98.6 98.4 98.8 Pulse 74 66 67 Resp 18 18 18 B/P (MAP) 110/62 123/65 106/60 Pulse Ox 94 95 95 94 O2 Delivery Room Air Room Air* Room Air Room Air O2 Flow Rate 0 FiO2 21 21 21 LABS: Laboratory: Test 06/12/24 10:59 06/12/24 04:55 Range/Units Whole Blood Glucose 129 H 70-110 MG/DL White Blood Count 9.8 4.8-10.8 K/uL Red Blood Count 3.73 L 4.50-6.20 MIL/uL Hemoglobin 12.4 #L 14.0-18.0 g/dL Hematocrit 36.4 #L 42-54 % Mean Corpuscular Volume 97.6 79-99 fL Mean Corpuscular Hemoglobin 33.2 H 27.0-33.0 pg Mean Corpuscular Hemoglobin Concent 34.1 32.0-36.0 g/dL Red Cell Distribution Width 12.4 11.0-15.5 % Platelet Count 196 130-400 K/uL Mean Platelet Volume 10.8 H 7.5-10.5 fL Nucleated Red Blood Cells 0.0 0.0-0.19 % Sodium Level 140 136-145 mmol/L Potassium Level 2.8 *L 3.5-5.1 mmol/L Chloride Level 101 101-111 mmol/L Carbon Dioxide Level 33 H 21-32 mmol/L Blood Urea Nitrogen 23 H 7-18 mg/dL Creatinine 1.2 0.5-1.3 mg/dL Glomerular Filtration Rate Calc 64 >90 mL/min Random Glucose 98 70-105 mg/dL Total Calcium 8.1 L 8.5-10.1 mg/dL Magnesium Level 2.20 1.80-2.40 mg/dL ASSESSMENT: Abdominal pain. Small bowel obstruction, s/p laparoscopy with lysis of adhesions and small-bowel anastomosis on 06/10/2024 Nausea or vomiting. Dehydration. Diabetes mellitus. Hypokalemia. PLAN: Continue GI prophylaxis. Continue pain management. Continue nutritional support, currently on full liquid diet. Glucometer checks a.c./hs and cover with insulin per sliding scale protocol. Continue IV fluids. We will monitor electrolytes and replace as needed. This case was reviewed and discussed with my supervising physician and the above assessment and plan was formulated and agreed upon. ATTESTATION BY PHYSICIAN I have seen and examined the patient. I reviewed the documentation, medical decision making, and treatment plan as noted by the mid-level provider above. I agree with the findings and plan of care. ABELARDO FRAGOSO MD, MIRTA L [facility] Jun 12, 2024 14:57
--- NOTE | 2024-06-12 16:30 | NUR ---
BLOOD GLUCOSE AT 89. NO INSULIN COVERAGE NEEDED AT THIS TIME. ENCOURAGED PATIENT TO KEEP HYDRATED. PATIENT VERBALIZED UNDERSTANDING.
--- NOTE | 2024-06-12 18:00 | NUR ---
PATIENT TOLERATED DIET WELL.
[2024-06-12] MEDS: PoTASSium chloRIDE 20MEQ/100ML 100 ML IV PRN (18:08)
--- NOTE | 2024-06-12 18:30 | NUR ---
PLACED 20G ON LEFT HAND. PATENT, NO SIGNS OF EDEMA OR ERYTHEMA ON SURROUNDING AREA.
[2024-06-13] VITALS: BP 125/68; PULSE 67; RESP 18; TEMP 98.5
[2024-06-13 04:00] VITALS: BP 134/74; PULSE 69; RESP 16; TEMP 98.1
[2024-06-13 06:05] LABS: MAGNESIUM 2.1 mg/dL (1.80-2.40)
[2024-06-13 08:00] VITALS: BP 134/74; PULSE 67; RESP 16; TEMP 98.2; O2SAT 98
--- NOTE | 2024-06-13 11:43 | PN ---
GENERAL SURGERY PROGRESS NOTE Date/Time Patient Seen: [ ] Problem List: partial SBO and baseline Gastroparesis Interval History: POD #3 s/p take back to OR for lysis of adhesions and creation of omega loop to relieve his afferent loop/limb partial obstruction. Patient doing well this morning, still complaining of some bloating, however passing gas, had a bowel movement. Tolerating full liquid diet, no nausea or vomiting. Ambulating No fevers, chills, shortness and breath, chest pain, constipation, diarrhea Current Medications Medications (Trade) Dose Ordered Sig/Bridgette Route Start Time Stop Time Status Last Admin Dose Admin Cefepime HCl (MAXipime 1 GM vial) 1 gm Q8H IVPB 06/05/24 06:30 06/06/24 11:22 DC 06/06/24 05:30 1 GM Dextrose/Sodium Chloride 1,000 ml @ 75 mls/hr [id number] IV 06/05/24 10:00 07/05/24 09:59 06/13/24 08:19 75 MLS/HR Enoxaparin Sodium (Lovenox) 30 mg DAILY SQ 06/06/24 09:00 07/06/24 08:59 06/13/24 08:23 30 MG Enoxaparin Sodium (Lovenox) 30 mg ONCE SQ 06/10/24 21:00 06/10/24 23:59 DC 06/10/24 20:51 30 MG Famotidine (Pepcid 20mg Vial) 20 mg BID IV 06/10/24 21:00 07/10/24 20:59 06/13/24 08:19 20 MG Hydromorphone HCl (DiLAUDid 0.5MG INJ) 0.5 mg ONCE IVP 06/11/24 16:00 06/11/24 20:00 DC 06/11/24 16:14 0.5 MG Insulin Human Lispro (HumaLOG LISpro 100 UNIT/ML 3ML) INSULIN SLIDING SCAL... ACHS SQ 06/05/24 11:30 07/05/24 11:29 06/11/24 13:02 6 UNIT Ketorolac Tromethamine (toRADol) 15 mg Q6H6 IV 06/11/24 18:00 06/16/24 17:59 06/13/24 06:17 15 MG Ketorolac Tromethamine (toRADol) 30 mg ONCE IVP 06/11/24 16:00 06/11/24 20:00 DC 06/11/24 16:14 30 MG Metoclopramide HCl (regLAN 10MG IV) 10 mg BID IVP 06/11/24 21:00 07/11/24 20:59 06/13/24 08:19 10 MG Simethicone (Mylicon) 160 mg QID PO 06/12/24 13:00 07/12/24 12:59 06/13/24 08:18 160 MG Physical Examination: GENERAL: [No acute distress.] HEAD: [Normal with no signs of head trauma.] EYES: [PERRLA, EOMI, conjunctiva and sclera normal.] ENT: [Hearing grossly intact, normal oropharynx.] NECK: [Supple without JVD. There is no tenderness, lymphadenopathy, or masses. No thyromegaly. Normal carotid upstrokes without bruits.] LUNGS: [Clear breath sounds bilaterally. There are right basilar rales one third of the way up the chest. No wheezes, or rhonchi.] HEART: [Normal rate and rhythm. Normal S1 and S2 without mumurs, gallop or rub.] VASC: [Peripheral pulses +2 bilaterally.] ABD: [Mild distention, however soft. No rebound or guarding. Incisions are clean dry and intact. Mild tenderness to palpation, suspected after surgical procedure.] : [Not examined] LYMPH: [No lymphadenopathy noted.] EXT: [No clubbing, cyanosis or edema.] SKIN: [No rashes or lesions noted.] NEURO: [Awake, alert, and oriented x3. No focal sensory or strength deficits noted.] Vital Signs (last 8hr) Date Time Temp Pulse Resp B/P (MAP) Pulse Ox O2 Delivery O2 Flow Rate FiO2 06/13/24 08:00 98.2 67 16 134/74 98 Room Air 21 06/13/24 08:00 98 Room Air* 0 21 06/13/24 04:00 98.1 69 16 134/74 97 Room Air Laboratory: [ ] Hematology Labs: Test 06/12/24 04:55 Range/Units White Blood Count 9.8 4.8-10.8 K/uL Red Blood Count 3.73 L 4.50-6.20 MIL/uL Hemoglobin 12.4 #L 14.0-18.0 g/dL Hematocrit 36.4 #L 42-54 % Mean Corpuscular Volume 97.6 79-99 fL Mean Corpuscular Hemoglobin 33.2 H 27.0-33.0 pg Mean Corpuscular Hemoglobin Concent 34.1 32.0-36.0 g/dL Red Cell Distribution Width 12.4 11.0-15.5 % Platelet Count 196 130-400 K/uL Mean Platelet Volume 10.8 H 7.5-10.5 fL Nucleated Red Blood Cells 0.0 0.0-0.19 % Chemistry Labs: Test 06/13/24 10:35 06/13/24 05:13 Range/Units Whole Blood Glucose 133 H 70-110 MG/DL Sodium Level 141 136-145 mmol/L Potassium Level 4.0 3.5-5.1 mmol/L Chloride Level 107 101-111 mmol/L Carbon Dioxide Level 28 21-32 mmol/L Blood Urea Nitrogen 12 7-18 mg/dL Creatinine 1.0 0.5-1.3 mg/dL Glomerular Filtration Rate Calc 79 >90 mL/min Random Glucose 125 H 70-105 mg/dL Total Calcium 8.3 L 8.5-10.1 mg/dL Magnesium Level 2.10 1.80-2.40 mg/dL Diagnostics / Radiology: [Copy/Paste Echos/Imaging Report here] Impression and Plan: 74 man we recent surgery for gastroparesis, now with 2nd surgery to address partial afferent loop obstruction secondary to abnormal adhesions and twisting about the anastomosis. The anatomy was corrected with adhesiolysis and an omega loop was completed to allow for bypass passage of biliopancreatic effluent without obstruction. Pt should continue ambulation, abdominal binder. Cont Reglan to assist with GI motility. -continue Simethicone QID -continue FULL LIQUID DIET -follow hospitalist's recommendations All medical care as directed by primary hospitalist team, but surgically he appears to be recovering well. In terms of disposition, he will be going home very likely. He is meeting most discharge criteria, but remains with some bloating. pain well controlled, ambulation and tolerating a full liquid diet. we will continue to follow for another 24 hours in order to make sure patient is we will to go home. If he continues to tolerate diet, pain remains under control and continues to ambulate from the surgical standpoint he will be cleared to discharge tomorrow. We appreciate the excellent nursing care, hospitalist team, and input of nutrition/market director teams to maximize the patient's protein and nutritional uptake as he recovers from a 2nd surgery. No further surgical intervention planned at this time. NIMESH GRIMES MD Jun 13, 2024 11:43
[2024-06-13 12:00] VITALS: BP 117/68; PULSE 67; RESP 17; TEMP 98.4
[2024-06-13 16:00] VITALS: BP 134/72; PULSE 63; RESP 18; TEMP 98.4
--- NOTE | 2024-06-13 17:16 | PN ---
INFECTIOUS DISEASE PROGRESS NOTE Date of Service: Jun 13, 2024 SUBJECTIVE: This is a 74-year-old male patient who was admitted with abdominal pain and nausea or vomiting. Patient recently had a robotic hiatal hernia repair and cholecystectomy on 05/29/2024. A CT of the abdomen and pelvis done on admission showed gastric distention with small bowel dilatation is seen with transitional point at the level of jejunum consistent with bowel obstruction. Patient is status post laparoscopy with lysis of adhesions and small-bowel anastomosis on 06/10/2024. Abdominal surgical incisions are clean and dry and patient has good bowel sounds. Tolerating full liquid diet well. No reports of nausea or vomiting. Patient ambulates independently. Will continue to monitor patient. PHYSICAL EXAM EYES: Anicteric. Pupils equal and reactive. HENT: No oral thrush seen, moist Oral mucosa. NECK: Supple, no JVD or thyromegaly. LUNGS: Good air entry. No rales, no rhonchi. CARDIOVASCULAR: S1, S2 regular. No murmur heard. ABDOMEN: bowel sounds present, no organomegaly. Abdominal surgical incisions.. CENTRAL NERVOUS SYSTEM: Awake, alert, oriented x 3. SKIN: No rashes, no swelling. LYMPHATICS: No peripheral lymphadenopathy. MUSCULOSKELETAL: No joint swelling, erythema or tenderness. EXTREMITIES: No cyanosis or clubbing. BACK: No deformity, no pressure ulcer. GENITOURINARY: No dysuria or hematuria. Vital Sign (Last 12 Hours) 06/13/24 06/13/24 06/13/24 06/13/24 08:00 08:00 12:00 16:00 Temp 98.2 98.4 98.4 Pulse 67 67 63 Resp 16 17 18 B/P (MAP) 134/74 117/68 134/72 Pulse Ox 98 98 98 98 O2 Delivery Room Air* Room Air Room Air Room Air O2 Flow Rate 0 FiO2 21 21 21 21 Intake & Output (last 24hrs) 06/12/24 06/12/24 06/13/24 15:00 23:00 07:00 Intake Total 1800 ml Balance 1800 ml LABS: Laboratory: Test 06/13/24 15:38 06/13/24 05:13 06/12/24 04:55 Range/Units Whole Blood Glucose 143 H 70-110 MG/DL Sodium Level 141 136-145 mmol/L Potassium Level 4.0 3.5-5.1 mmol/L Chloride Level 107 101-111 mmol/L Carbon Dioxide Level 28 21-32 mmol/L Blood Urea Nitrogen 12 7-18 mg/dL Creatinine 1.0 0.5-1.3 mg/dL Glomerular Filtration Rate Calc 79 >90 mL/min Random Glucose 125 H 70-105 mg/dL Total Calcium 8.3 L 8.5-10.1 mg/dL Magnesium Level 2.10 1.80-2.40 mg/dL White Blood Count 9.8 4.8-10.8 K/uL Red Blood Count 3.73 L 4.50-6.20 MIL/uL Hemoglobin 12.4 #L 14.0-18.0 g/dL Hematocrit 36.4 #L 42-54 % Mean Corpuscular Volume 97.6 79-99 fL Mean Corpuscular Hemoglobin 33.2 H 27.0-33.0 pg Mean Corpuscular Hemoglobin Concent 34.1 32.0-36.0 g/dL Red Cell Distribution Width 12.4 11.0-15.5 % Platelet Count 196 130-400 K/uL Mean Platelet Volume 10.8 H 7.5-10.5 fL Nucleated Red Blood Cells 0.0 0.0-0.19 % ASSESSMENT: Abdominal pain. Small bowel obstruction, s/p laparoscopy with lysis of adhesions and small-bowel anastomosis on 06/10/2024 Nausea or vomiting. Dehydration. Diabetes mellitus. Hypokalemia. PLAN: Continue GI prophylaxis. Continue pain management. Continue nutritional support, currently on full liquid diet. Glucometer checks a.c./hs and cover with insulin per sliding scale protocol. Continue IV fluids. We will monitor electrolytes and replace as needed. This case was reviewed and discussed with my supervising physician and the above assessment and plan was formulated and agreed upon. ATTESTATION BY PHYSICIAN I have seen and examined the patient. I reviewed the documentation, medical decision making, and treatment plan as noted by the mid-level provider above. I agree with the findings and plan of care. ABELARDO FRAGOSO MD, MIRTA L [facility] Jun 13, 2024 17:16
[2024-06-13 20:00] VITALS: BP 115/69; PULSE 65; RESP 20; TEMP 98.3; O2SAT 98
[2024-06-14] VITALS: BP 121/71; PULSE 66; RESP 20; TEMP 97.9
[2024-06-14 04:00] VITALS: BP 133/67; PULSE 62; RESP 20; TEMP 98.6
[2024-06-14 08:00] VITALS: O2SAT 97
[2024-06-14 08:10] VITALS: BP 118/64; PULSE 65; RESP 18; TEMP 98.4
--- NOTE | 2024-06-14 12:00 | DS ---
DATE OF SERVICE: 06/14/2024 PRESENTING COMPLAINT: Nausea, vomiting, and abdominal pain. HOSPITAL COURSE: A 74-year-old male with hypertension, diabetes mellitus, presented to the hospital with abdominal pain. The patient also complained of nausea and vomiting. Symptoms started 1 day prior to presentation. Imaging was done, showed the patient to have small bowel obstruction. The patient managed initially conservatively. Due to persistent nausea, vomiting, and abdominal pain, the patient eventually underwent laparoscopic exploration with bowel resection, repair of internal hernia. The patient now tolerating orally. Having bowel movement. No fever or chills. Abdominal pain has resolved. The patient cleared for discharge. FINAL DISCHARGE DIAGNOSES: * Small bowel obstruction. * Nausea and vomiting * Abdominal pain. * Dehydration. * Internal hernia status post repair. * Hypertension. * Diabetes mellitus. PLAN: * The patient to be discharged home. * Continue antihypertensive. * Continue antidiabetic. * Follow up with primary care physician. * Follow up with surgical team. TID: [id number] RECEIPT: [id number] [facility]
[2024-06-14 12:30] VITALS: BP 120/62; PULSE 68; RESP 16; TEMP 98.1
--- NOTE | 2024-06-14 16:00 | NUR ---
PATIENT DISCHARGED HOME ID BAND AN IV REMOVED. DISCHARGE INSTRUCTIONS EXPLAINED AND GIVEN TO PATIENT. PATIENT VERBALIZED UNDERSTANDING. BELONGINGS PACKED AND TAKEN BY PATIENT. WHEELED DOWN TO PRIVATE CAR.
== END 2024-06-14 16:00 | disposition home or self-care (01) | DRG 330 ==
LOC: EDH 05:47 → EDHIP 10:00 → 3CH 15:28
PROVIDERS: ADMIT Internal Medicine Infectious Disease; ATTEND Internal Medicine Infectious Disease
PROC: 0DJ08ZZ Inspection of Upper Intestinal Tract, Via Natural or Artificial Opening Endoscopic (ICD-10-PCS; principal; 2024-06-10 15:57)
PROC: 0D1A4ZA Bypass Jejunum to Jejunum, Percutaneous Endoscopic Approach (ICD-10-PCS; 2024-06-10 15:57)
PROC: 8E0W4CZ Robotic Assisted Procedure of Trunk Region, Percutaneous Endoscopic Approach (ICD-10-PCS; 2024-06-10 15:57)
DX: K56.600 Partial intestinal obstruction, unspecified as to cause (principal); N17.9 Acute kidney failure, unspecified; E11.43 Type 2 diabetes mellitus with diabetic autonomic (poly)neuropathy; E86.0 Dehydration; K31.84 Gastroparesis; I10 Essential (primary) hypertension; K31.89 Other diseases of stomach and duodenum; E87.6 Hypokalemia; E66.9 Obesity, unspecified; K46.9 Unspecified abdominal hernia without obstruction or gangrene; E78.00 Pure hypercholesterolemia, unspecified; K66.0 Peritoneal adhesions (postprocedural) (postinfection); K44.9 Diaphragmatic hernia without obstruction or gangrene; N40.0 Benign prostatic hyperplasia without lower urinary tract symptoms; Z96.659 Presence of unspecified artificial knee joint; Z79.899 Other long term (current) drug therapy; Z90.49 Acquired absence of other specified parts of digestive tract; Z68.27 Body mass index [BMI] 27.0-27.9, adult; Z83.3 Family history of diabetes mellitus
CPT/HCPCS: 36415; 43235; 74018; 74177; 74240; 80048; 80053; 81001; 82150; 82948; 83690; 83735; 85025; 85027; 96365; 96375; 99291; G0378; J0330; J0690; J0692; J1100; J1171; J1650; J1815; J1885; J2003; J2250; J2270; J2405; J2470; J2704; J2710; J2765; J3010; J3370; J3480; J3490; J7030; J7042; J7120; P9045; Q9963; Q9967; A4215; A4216; A4222; A4223; J0665

== ENCOUNTER → 2024-06-16 | Outpatient (CLI) | payer OTHER ==
[~2024-06-16] MED LIST changes: +BISA-151 PO; -BISACODYL PO; +FAMO40TA7 PO; +IOHEXOL 350 MG/ML 100ML INFUS..BTL IV ONE; +TRAM-543 PO
--- NOTE | 2024-06-16 10:16 | HMCIMG ---
CT ABDOMEN/PELVIS W/CONTRAST HISTORY: Gastroparesis COMPARISON: None TECHNIQUE: Multiple sequential axial images of the abdomen and pelvis were obtained from the dome of the diaphragm through symphysis pubis. Patient was given contrast given 100 cc of Omnipaque through intravenous route. Oral contrast was given. FINDINGS: No pleural effusion is seen bilaterally. There is no evidence of parenchymal disease or pulmonary nodule of the visualized lower lungs. Degenerative changes of the thoracolumbar spine are present. The heart is not enlarged. There is gastric distention suggested of patient history of gastroparesis. Small bowel dilatation is seen suspicious for ileus. Contrast reached the rectum. No obstruction is seen. Small amount of free intraperitoneal air is seen consistent with patient history of surgery 6 days ago. Clinical correlation is recommended. Subcutaneous emphysema is also seen consistent postop changes. No leakage is seen. The liver, spleen, adrenal glands and pancreas are unremarkable. There is no evidence of hydronephrosis bilaterally. No evidence of renal stone is seen. Fecal material is seen in the colon. There are normal size retroperitoneal and mesenteric lymph nodes. No ascites is seen. Atherosclerotic changes are present. Pelvic sidewalls are symmetric bilaterally. Bladder is moderately distended. IMPRESSION: 1. There is gastric distention suggested of patient history of gastroparesis. Small bowel dilatation is seen suspicious for ileus. Contrast reached the rectum. No obstruction is seen. Small amount of free intraperitoneal air is seen consistent with patient history of surgery 6 days ago. Clinical correlation is recommended. Subcutaneous emphysema is also seen consistent postop changes. No leakage or ascites is seen. Report was given to physician's office. CT was performed with one or more following dose reduction techniques: automated exposure control, adjustment of the mA and kv according to patient's size, or use of a iterative reconstruction technique.
--- NOTE | 2024-06-16 15:19 | NUR ---
IVAN NURSE IN OFFICE MADE AWARE OF CRITICAL FINSINGS IN CT REPORT Addendum: 06/16/24 at 1521 by CASSANDRA MCCLENDON RAD WILL FOLLOW UP WITH PT
== END | disposition home or self-care (01) ==
LOC: RAH 09:04
PROVIDERS: ATTEND Student in an Organized Health Care Education/Training Program
DX: K80.20 Calculus of gallbladder without cholecystitis without obstruction (principal); K31.84 Gastroparesis; K44.9 Diaphragmatic hernia without obstruction or gangrene; M47.815 Spondylosis without myelopathy or radiculopathy, thoracolumbar region; K42.9 Umbilical hernia without obstruction or gangrene; I70.90 Unspecified atherosclerosis
CPT/HCPCS: 74177; Q9967

== ENCOUNTER → 2025-07-06 | Outpatient (CLI) | payer OTHER ==
[~2025-07-06] MED LIST changes: -IOHEXOL 350 MG/ML 100ML INFUS..BTL IV ONE; -ROSU10TA72 PO; +ROSU10TA98 PO; -TAMS-1 PO; +TAMS-55 PO
[2025-07-06 10:35] LABS: IMMATURE GRANULOCYTE ABSOLUTE 0.02 K/uL (0-1); NUCLEATED RED BLOOD CELLS 0.0 % (0.0-0.19); PLATELET COUNT (AUTO) 164 K/uL (130-400); RED BLOOD CELL COUNT(AUTO) 4.76 MIL/uL (4.50-6.20); RED CELL DISTRIBUTION WIDTH 12.3 % (11.0-15.5); WHITE BLOOD COUNT (AUTO) 7.7 K/uL (4.8-10.8)
[2025-07-06 10:52] LABS: ASPARTATE AMINOTRANSFERASE 13.0 U/L (10-37); CREATININE 0.8 mg/dL (0.5-1.3); GLOMERULAR FILTR. RATE CALC 93.0 mL/min (>90); GLUCOSE,RANDOM 114.0 mg/dL (70-105); SODIUM SERUM 140.0 mmol/L (136-145); TOTAL PROTEIN, SERUM 7.0 g/dL (6.0-8.3); UREA NITROGEN, BLOOD 16.0 mg/dL (7-18)
== END | disposition home or self-care (01) ==
LOC: LAB 09:37
PROVIDERS: ATTEND Internal Medicine Gastroenterology
DX: R10.84 Generalized abdominal pain (principal)
CPT/HCPCS: 36415; 80053; 85025